=== PATIENT | male | born 1960 | race Caucasian/White ===

== ENCOUNTER 2023-02-18 06:54 | Outpatient (OUT) | payer OTHER, SELFPAY ==
[2023-02-18 07:20] LABS: Basophils Absolute Auto 0.1 10^3/uL (0.0-0.1); Basophils Percent Auto 0.8 % (0.2-2.0); Eosinophils Absolute Auto 0.5 10^3/uL (0.0-0.7); Eosinophils Percent Auto 7.2 % (0.9-7.0); Hematocrit 43.2 % (42.0-54.0); Hemoglobin 14.7 g/dL (14.0-18.0); Immature Granulocytes Abs Auto 0.04 10^3/uL (0.00-0.03); Immature Granulocytes Pct Auto 0.6 % (0.0-0.5); Lymphocytes Absolute Auto 1.6 10^3/uL (1.2-3.8); Lymphocytes Percent Auto 25.2 % (20.5-60.0); Mean Corpuscular Hemoglobin 30.9 pg (25.9-34.0); Mean Corpuscular Volume 90.9 fL (80.0-94.0); Monocytes Absolute Auto 0.5 10^3/uL (0.3-0.8); Monocytes Percent Auto 8.3 % (1.7-12.0); Neutrophils Absolute Auto 3.8 10^3/uL (1.4-6.5); Neutrophils Percent Auto 57.9 % (43.0-75.0); Platelet Count 174 10^3/uL (150-450); Red Blood Count 4.75 10^6/uL (4.70-6.10); Red Cell Distribution Width 13.2 % (11.0-15.0); White Blood Count 6.5 10^3/uL (4.0-11.0)
[2023-02-18 14:05] LABS: Alanine Aminotransferase 44 U/L (16-63); Albumin Globulin Ratio 1.3; Alkaline Phosphatase 85 U/L (46-116); Aspartate Amino Transferase 24 U/L (15-37); BUN Creatinine Ratio 15.7; Bilirubin Total 0.4 mg/dL (0.2-1.0); Calcium 9.2 mg/dL (8.5-10.1); Carbon Dioxide 25.3 mmol/L (21.0-32.0); Chloride 102 mmol/L (98-107); Chol HDL Ratio 3.3; Cholesterol 125 mg/dL (<=200); Estimated GFR (African America >60 (>=60); Estimated GFR (Non-African Ame >60 (>=60); Globulin 3.2 g/dL; Glucose 94 mg/dL (74-106); HDL Cholesterol 38 mg/dL (40-60); Potassium 4.3 mmol/L (3.5-5.1); Sodium 138 mmol/L (136-145); Total Protein 7.2 g/dL (6.4-8.2); Triglycerides 81 mg/dL (<=150); VLDL CHOLESTEROL 16.2 mg/dL
== END 2023-02-18 06:55 | disposition home or self-care (01) ==
LOC: LAB 06:54
PROVIDERS: PCP Internal Medicine; Visit Provider Internal Medicine
DX: Z00.00 Encounter for general adult medical examination without abnormal findings (principal); Z12.5 Encounter for screening for malignant neoplasm of prostate
CPT/HCPCS: 36415; 80053; 80061; 85025; G0103

== ENCOUNTER 2024-02-22 11:55 | Outpatient (OUT) | payer OTHER, SELFPAY ==
[2024-02-22 11:56] LABS: Basophils Percent Auto 0.5 % (0.2-2.0); Eosinophils Absolute Auto 0.1 10^3/uL (0.0-0.7); Eosinophils Percent Auto 2.1 % (0.9-7.0); Hematocrit 43.4 % (42.0-54.0); Hemoglobin 14.5 g/dL (14.0-18.0); Immature Granulocytes Abs Auto 0.03 10^3/uL (0.00-0.03); Immature Granulocytes Pct Auto 0.5 % (0.0-0.5); Lymphocytes Absolute Auto 1.3 10^3/uL (1.2-3.8); Lymphocytes Percent Auto 19.1 % (20.5-60.0); Mean Corpuscular HGB Conc 33.4 g/dL (29.9-35.2); Mean Corpuscular Hemoglobin 31.3 pg (25.9-34.0); Mean Corpuscular Volume 93.5 fL (80.0-94.0); Mean Platelet Volume 10.1 fL (9.5-13.5); Monocytes Absolute Auto 0.4 10^3/uL (0.3-0.8); Monocytes Percent Auto 6.5 % (1.7-12.0); Neutrophils Absolute Auto 4.8 10^3/uL (1.4-6.5); Neutrophils Percent Auto 71.3 % (43.0-75.0); Platelet Count 151 10^3/uL (150-450); Red Blood Count 4.64 10^6/uL (4.70-6.10); White Blood Count 6.7 10^3/uL (4.0-11.0)
[2024-02-22 12:17] LABS: Alanine Aminotransferase 27 U/L (16-63); Albumin Globulin Ratio 1.3; Albumin Level 4.1 g/dL (3.4-5.0); Alkaline Phosphatase 72 U/L (46-116); Anion Gap 8.4; Aspartate Amino Transferase 23 U/L (15-37); BUN Creatinine Ratio 12.5; Bilirubin Total 0.6 mg/dL (0.2-1.0); Calcium 9.4 mg/dL (8.5-10.1); Carbon Dioxide 29.3 mmol/L (21.0-32.0); Chloride 100 mmol/L (98-107); Chol HDL Ratio 2.3; Cholesterol 143 mg/dL (<=200); Estimated GFR (African America >60 (>=60); Estimated GFR (Non-African Ame >60 (>=60); Globulin 3.1 g/dL; Glucose 100 mg/dL (74-106); HDL Cholesterol 63 mg/dL (40-60); Potassium 3.7 mmol/L (3.5-5.1); Sodium 134 mmol/L (136-145); Total Protein 7.2 g/dL (6.4-8.2); Triglycerides 73 mg/dL (<=150); VLDL CHOLESTEROL 14.6 mg/dL
[2024-02-22 12:41] LABS: Prostate Specific Antigen Scrn 0.71 ng/mL (<=4.00)
== END 2024-02-22 11:56 | disposition home or self-care (01) ==
LOC: LAB 02-23 11:56
PROVIDERS: PCP Internal Medicine; Visit Provider Internal Medicine
DX: Z00.00 Encounter for general adult medical examination without abnormal findings (principal); I10 Essential (primary) hypertension; E78.00 Pure hypercholesterolemia, unspecified; Z12.5 Encounter for screening for malignant neoplasm of prostate
CPT/HCPCS: 36415; 80053; 80061; 85025; G0103

== ENCOUNTER 2025-03-09 11:37 | Outpatient (OUT) | payer MEDICARE, OTHER, SELFPAY ==
--- OUTSIDE RECORDS SUMMARY | 2025-03-09 11:41 | XMS_ITS | CCD ---
Author Organization [facility] Care Team Providers Care Adjunct Art History Instructor Name Role Phone ANGELICA, DR ADAN Consulting Unavailable ANGELICA, DR ADAN Admitting Unavailable ANGELICA, DR ADAN Attending Unavailable RUBENS, DR Nelly Magaña Attending Unavailable RUBENS, DR Nelly Magaña Consulting Unavailable RUBENS, DR Nelly Magaña Admitting Unavailable DARIEN, DR MILVIA Patel Consulting Unavailable TOSHIA, MILVIA Consulting Unavailable ANGELICA, DR ADAN Primary Care Unavailable ANGELICA, DR ADAN Admitting Unavailable ANGELICA, DR ADAN Attending Unavailable ANGELICA, DR ADAN Consulting Unavailable ANGELICA, DR ADAN Admitting Unavailable ANGELICA, DR ADAN Attending Lokesh Blackburn Unavailable Lokesh Schmitz DO Primary Care Provider Lokesh Schmitz DO Attending Provider Medications Current Medications Medication Drug Class(es) Dates Sig (Normalized) Sig (Original) aspirin 81 mg delayed release oral tablet (7 sources) Platelet Aggregation Inhibitor, Nonsteroidal Anti-inflammatory Drug Start: 08-08-2023 take 1 tablet by mouth once daily Aspirin 81 mg tablet,delayed release (DR/EC) Active 81 MG PO Daily August 08, 2023 12:00am Complies with drug therapy take 1 tablet by janet th every twenty-four hours Aspirin 81 MG 1 tablet Orally Once a day Active atorvastatin 20 mg oral tablet (12 sources) HMG-CoA Reductase Inhibitor Start: 10-08-2024 take 1 tablet by mouth once daily at bedtime Atorvastatin 20 mg tablet Active 0 .ROUTE .COMPLEX October 08, 2024 11:22am TAKE 1 TABLET BY MOUTH EVERY DAY AT BEDTIME Complies with drug therapy Start: 08-08-2023 End: 10-08-2024 take 1 tablet by mouth once daily at bedtime Atorvastatin 20 mg tablet Discontinued 20 MG PO Daily at bedtime 90 August 10, 2023 4:13pm October 08, 2024 11:22am Atorvastatin Petey cium 20 MG TAKE 1 TABLET DAILY EVERY EVENING Active lisinopril 20 mg oral tablet (18 sources) Angiotensin Converting Enzyme Inhibitor Start: 01-10-2025 take 1 tablet by mouth once daily Lisinopril 20 mg tablet Active 20 MG PO Daily January 10, 2025 12:56pm Complies with drug therapy Start: 10-08-2024 End: 01-10-2025 take 1 tablet by mouth once daily Lisinopril 40 mg tablet Discontinued 0 .ROUTE .COMPLEX October 08, 2024 11:22am January 10, 2025 12:56pm TAKE 1 TABLET BY MOUTH EVERY DAY Start: 08-09-2024 End: 10-08-2024 Lisinopril 40 mg tablet Disc ontinued 20 MG PO Daily August 09, 2024 3:51pm October 08, 2024 11:22am Start: 02-15-2024 End: 08-09-2024 take 10 mg by mouth once daily Lisinopril 40 mg tablet Discontinued 10 MG PO Daily February 15, 2024 4:45pm August 09, 2024 3:52pm Start: 02-15-2024 take 10 mg by mouth once daily Lisinopril Active 10 MG PO Daily February 15, 2024 4:45pm Start: 08-08-2023 End: 02-15-2024 take 1 tablet by mouth once daily Lisinopril 40 mg tablet Discontinued 40 MG PO Daily August 10, 2023 4:14pm February 15, 2024 4:55pm take 1 tablet by janet th once daily Lisinopril 40 MG TAKE 1 TABLET BY MOUTH EVERY DAY Active Completed/Discontinued Medications Medication Drug Class(es) Dates Sig (Normalized) Sig (Original) amLODIPine 10 mg oral tablet (11 sources) Dihydropyridine Calcium Channel Stephen Start: 08-08-2023 End: 08-09-2024 take 1 tablet by mouth once daily Amlodipine 10 mg tablet Discontinued 10 MG PO Daily August 10, 2023 4:12pm August 09, 2024 3:51pm Start: 06-05-2022 take 1 tablet by janet th once daily amLODIPine Besylate 10 MG 1 tablet Orally Once a day this replaces his 5mg May, Active Problems Problem Classification Problem Date Documented Date Episodic/Chronic Disorders of lipid metabolism (17 sources) Pure hypercholesterolemia, unspecified; Translations: [Hypercholesterolemia ] Onset: 01-23-2022 Chronic Essential hypertension (19 sources) Essential hypertension; Translations: [Essential (primary) hypertension] Chronic Joint disorders and dislocations; trauma-related (4 sources) Unspecified internal derangement of left knee; Translations: [UNS INTERNAL DERANGEMENT LEFT KNEE] Onset: 09-27-2021 Chronic Other connective tissue disease (3 sources) Synovial cyst of popliteal space; Translations: [Synovial cyst of popliteal space [Lozano], left knee] Episodic Other diseases of veins and lymphatics (8 sources) Peripheral venous insufficiency; Translations: [Venous insufficiency (chronic) (peripheral)] 08-08-2023 Episodic Other diseases of veins and lymphatics (5 sources) Venous insufficiency (chronic) (peripheral); Translations: [Venous (peripheral) insufficiency, unspecified] Episodic Other nutritional; endocrine; and metabolic disorders (6 sources) Body mass index 30+ - obesity; Translations: [Obesity, unspecified] 08-08-2023 Chronic Other nutritional; endocrine; and metabolic disorders (3 sources) Obesity, unspecified; Translations: [Obesity, unspecified] Chronic Other nutritional; endocrine; and metabolic disorders (2 sources) Severe obesity; Translations: [Morbid (severe) obesity due to excess calories] Chronic Other nutritional; endocrine; and metabolic disorders (1 source) Morbid (severe) obesity due to excess calories Chronic Other nutritional; endocrine; and metabolic disorders (1 source) Body mass index (BMI) 35.0-35.9, adult Chronic Other nutritional; endocrine; and metabolic disorders (1 source) Obesity caused by energy imbalance; Translations: [Morbid (severe) obesity due to excess calories] 08-08-2023 Chronic Other nutritional; endocrine; and metabolic disorders (2 sources) Obesity; Translations: [Obesity, unspecified] 08-10-2023 Chronic Other nutritional; endocrine; and metabolic disorders (2 sources) Overweight; Translations: [Overweight] 08-09-2024 Episodic Other screening for suspected conditions (not mental disorders or infectious disease) (8 sources) Encounter for screening for malignant neoplasm of prostate; Translations: [Patient encounter status] Onset: 09-25-2021 Episodic Residual codes; unclassified (1 source) History of colonoscopy; Translations: [Other specified postprocedural states] 02-15-2024 Episodic Residual codes; unclassified (1 source) Other specified postprocedural states; Translations: [Other postprocedural status] 02-15-2024 Episodic Results Test Name Value Interpretation Reference Range Facility DIRECT LDLon 01-23-2022 Cholesterol in LDL [Mass/Vol] 73 mg/dL Normal [facility] Comment on above: Performed By: #### D LDL, ALT #### [facility] [address] [place] [address] Dr. Steven Massey DLDL NORMAL SEE BELOW Normal [facility] Comment on above: Result Comment: <100 mg/dl OPTIMAL 100 - 129 mg/dl NEAR OR ABOVE OPTIMAL 130 - 159 mg/dl BORDERLINE HIGH 160 - 189 mg/dl HIGH >190 mg/dl VERY HIGH Performed By: #### D LDL, ALT #### [facility] [address] [place] [address] Dr. Steven Massey SGPTon 01-23-2022 ALT [Catalytic activity/Vol] 40 U/L Normal 16-63 [facility] Comment on above: Performed By: #### D LDL, ALT #### [facility] [address] [place] [address] Dr. Steven Massey Consent Formson 10-25-2021 Consent Forms [id number] [facility] Coding Summaryon 10-17-2021 [facility] EcopbqzxLQa6uBb+PGhlY WQ+OS1MOQUuD98xrTIvoT 7OG4fYBO9IHULKTOBNLY7 WHZ8puMM1BDhvS4BpniDu KxzxqOWtIP99GRq3OIB7g ZzmQYgroB2klQEwP8t3Vp AvKM27nU29MDyvDWIqJnP 3LjZpbjsgbWFy H2igFbAibQAoYfl+PHRhY mxlIHdpZHRoPScxMDAlJy JfvWilRI3fOy5jQFEyXMB vbGxhcHNlOiBj c2vtRBLmSCuvGA3qmPseD 1FvoDX4QODqt6t6Jv00yU I+RUVeCGD0wSumEZsez91 5ImRwr2meQYV5 iQNjOFveFSG4J07ms8I7R RBhNTFbBST1rTZ1hA4bcS xwbafgZ0NaeWYvBwW5UFM 0jWIhlU8poJiz iovwnV3gJjz+G84WBA4KE UWDEK8PBpq9I6RfYbrwgO I+NP69GSVsVD32yFWblTS wc5sprLg6MvWc EIJkLJU6mJmoORkxk0CrD ISkT11uuAGil3H7LNBxdO gieZJhZfWysMT6zT3yPHk wljzqv3xrctws Gyvkz8enaq45qY80D51vX AntPCNqGJU4HXQaTAIeiC duje6reG2tFd2+KKwac5n dv9jduXi3TzZj BOHrkkVnxVnkGHX2t7XtR s71G9XdxXojo8ZbZfk7pe 66vMGaa0F3nFB7JUkeSAX yrD0ySSkjLgN1 JQFaOzByaO65dXTnCKvrR a3klUjtbEvgKL3hLSYbsr ywRWNxaN6lUNRkgSUtkSx pKZ0sJAWakbnn m995CkZwWOW6EQEbhLRkL 9YbpM4nXnYqABYcISFiO6 HjjEJhWFbgX372FWlhVlJ 2KGYpaeHvD1Ta UWGjwGabNfF8g9K0Bs7Vq 2BhvfwxPHK0XEkaOHU8Tf F8VtLvQiE3Q4AsOhu4JFA oiPmtLR5jV3Vp NQGajldfnxvzmVZ8PUSaG YSamA34vOAdCPzmJr1ax9 Q1l893XGIaXJIqkC95Mt3 udDogMTBwdCBU mU3tukmoi3rgoqufKyZxL ZMjORj0AHc1WUGqeSbsNl PgWBF1RjS2ZQK4yLKcvP5 upBtbwdkexV6c Oyc+F65yeD0eLXO1YVO7s rhjFAGeszDsSH15OL79M9 RyPjwvdGFibGU+PGRpdiB cxDkqJX5sMbFp m6det5XoRDqdI1IkORHkH SfqMut1GUToVOJ8vCZ5kY 4xMEDhRWbyy2R1pRS0O7S riwOijo5cy0cr OTNkZLarG84biUSmd8N5I JZawUY1VDXhbNirGpGxdI 93Oyc+AHUkqVxjk9VfBxl cf9ggo8dbhYk2 XwPhZFKsrxOvkIhfMVZ3c 3HlYa57E15tNHotWTMjBG NhSFZtKECslMjljz5nuD8 wIi8+PGNvbCB3 qMA4qO0fJYBeQzK5RJigI 724QeRmxOIkUpere4wxg6 wabSl4KcYjOBYnloEqpNk vLTE4r2SsFe69 F99mFWliETKgFIPlPGPiZ KTgjEagwo5vcU1hVr2+PC 9rs3jmgt50yH75tRL+PHR bVNI2vRugYQpw REVnkM5cLHnsBcE2QIDiW iFwvY43sWTwALqnPa0ubG hyjExuBZ4cXODbudndd54 0UhFvz6oiXOTs wNSrLDloEUR9L26qn9Q7S PXrUPCvFBZ2tNW1tB3evS lnbjogbGVmdDsgdmVydGl zXOdeDYetS922 IHRvcDsnPlBhdGllbnQgT pAfOOj2C4HxUhx9BEEzbM saQY5adINkLBajGt2myFu qhByfJY9rGSCz qzvil628ZpWuc9pwVMFoc HCoURekVNH8T33vg5L0WR IyVNEcZAS5fKV7yN9rnQx nbjogbGVmdDsg zmBzrZkbNJbyQKpbM505V HRvcDsnPkJpcnRoIERhdG U4PY94YR66qZEtp1A9jIP 7C5QyHFUokvsm zcuxuVY9YIMiBHSqiV72Y g1hdMijDu5hVDLpVOE7WA RdbUEkW1EpbZ5cGmBaKCR uVWCwG9SpbLMl KBlrM769UKusSxU7AMRhk wCiD6SeOWPdcEgtBkN0m4 I7Cd2SK3S2ZW37SC23oBM li2M2dXN2I6Ep KVDyecyhyedfwJR1FVCgQ AZabN62Fd6wrRulOg2aAU GxKEF9IRYkkRBeD5IpoL9 yOiAjMDAwMDAw J6WaaHClNHsgG742EPukT cO0AIEkkcFxZ9KyXIIpbJ txJfG0r6C8Dl6HWHh9YM2 4ZO95fKYut0G5 uCW1J2GeWISrtqrsnwimj UY3CTIcFIAfpW25Pe4vlW rnGz8cOLSfUJW4ENBjzSP aJ0WllM6nKySa UIPkAQQkP3DoeSAnQNxzO 418SVmpSkA0MNYuxkRyP0 VeRXKivKxxFaW5s4X9Om6 DEQYsVE82WCE4 bHC9KI15XB82H2WwLigvr GFibGU+PHRhYmxlIHdpZH RoPScxMDAlJyBzdHlsZT0 uVd6iGATvFYXc zDdjcUVcZtBvl7xhVVHjF IerNJ4woCisN7SasAP6AT Rab4f7Ux82R88gK1IruQX +NIJikAB1kXX8 uQ6nZxZlYyJ7EBfzL745G oQyoDWqXjkxq6hgx4ubjJ a2GfD0MXFlvzEviLdjWGZ 5y7SiZu91V10p IHdpZHRoPSIxNSUiIHZhb Uvtbk2jnB6oNo5+PGNvbC Q6qHI2fI5bGeDlNnD0XEc vB258CyRsgYGc Zedch3sqx5akmEr6WiTvU XWsduVayYwuBSJ6u0ZdXx 78D2AumNncx8IsTrd3ov8 4gVSmq5W1lGQ6 U5RmDJWpludsjMOdcCygY G4jSJVzafwdPQFwtB0kLI DlR8c5BoDoXvN7JDhmP9V spxD5RABlrMXe HVrrIRT8P10bq4X1UQCqM CZbVII4bOT3kC8wqYmwha ogbGVmdDsgdmVydGljYWw mEYfgY628TZPa qIqzLUBstV3lKLUskBZgm XhxDK6wFDDmhtocKmkZC8 BVP8FqFGQJGjjvUqqarFJ +SYXnAFR3iQco DShoQZTekR4hPDWpS3d4T lMeDbZ2IYauX3NyWDAnmv fwMw15pM3dUmFiHkV1XHc jD2FpnsI7QAVb nISqXQttTAO5H22ub5W3C UDlWUVaFIL5fGY6wZ6zeI lnbjogbGVmdDsgdmVydGl wNHckZOpxO431 DZOpsXokBqN5ThP2CuY2J Gu9O3YxXoy9FUWlhRzoVQ 1tpHVqKInaBa0tcOuvjYa sUT4uMNAmudfj PYOqcT6rYNBjzAVduVceU R3cZEGfoxwwb319QySfYT W6OCPogYFgJ2VxcV4gQmU vRLQrTNMnE2Qz iPCwQLwpM270KTnqAjM3G IEfdaCnN2KiIOAhdWknEw I9a0S6Pp05VoLPBFMnyec vdGQ+PHRkIHN0 gMiwEMjoTGTdcD1yVEXaC 6r0LyJoLxX5NQjlR4KcBC BfvwhyQk03xX5yXkCpKhE 0ZUtcO7CvfrD2 JZJoeBFjPBnaEKR3Y07dd 9F9UWOyDESoQPJ7xVZ9cB 1hbGlnbjogbGVmdDsgdmV ydGljYWwtYWxp D005TSWyfPclTi9XAJD4Q 6EoOob0EVOdvYzoOB9meA YcKQjiDw9bqEdgsSfeLK8 wNTBpbjtwYWRk zO3aURPwrEDfeXjjRT3tX HDqnnxfj835LjYdWGB5SE ZsfVUaN2MquE8nBiLlMEG yRTOrU9MxiPBr PItwG516PLflRtB3YVJpu wLwY4TqDDVnpPlfIsE9b9 E9Sg6NTTetK9OpD5GqzOf vdGQ+JX70of23 Z8DhVzgeIkx2CFNdBCG9o QN9kK7vEUGaQGupa7T5qS H9V4LxpbJumw5ql6alRUD rADqqX59jnZOv x9T8BDZpoGD2SCEqpOcvH kPmnS82Pck+PGNvbGdyb3 TzZzhne3xdn1tsiBs9CkT wJSIgdmFsaWdu WSR4x2TbKf82G75qIUfaK HRoPSIzMCUiIHZhbGlnbj 7bsS7rEd9+QTMznXG4mEC 3bM1jRrCaGoX1 EHmmY465NlErhNLqEbszk 6mpz3ketAa3HmXiHMAtqr ClqGcoXLX5d3RwZo32T8Y caZfqv9NfNah8 jc99kXRra1P8qGW1C9IqI AYhjfjbyMWjhLikIA5jDL OkqhbkWQKhuU5wHKPmJ2g 5JdDdQkV0HDap A5ZawrZ9AZPwmNAbIWSix OKIeR6gqotex8cpexagBe NdFGSzTDo4KAf7FCCzuGu gThSnWHY2PnA4 AGX6kZPjjO1epIstddrao G9wOyc+RLw5m7iahGIaOG 4kcWT5JL19CL99nGTtd6T 3xVC7Z0XsICLz ptaosozmlBV1AJQmRNHdo E45Pk2pqZkuMt3eRJMkQN N2THUnjXUbM8DkfG9mYvK uCIDwQTDhP3Zk aBFrNKnpT757UUvtYxQ6V GWgwbZnH9QhXUVnoBviIu U6g5A8Us8XPA57DX94HP9 0qUXvu5F9lYG1 W3YsLBCpqyqzkqwioXA9V HMxUDVlbQ39Lm7aaCbyKp 0cBZYeIRD5JTEczUVmD3X mgC5kQqVjVJFg UJYtV5UbvUXlCJxcV154A OvwShB8BYPncdHmA5NnLG KzwKbgNsJ4k6N5Pk8WPr8 1AE84JW99oWUw b2B5yPL3I0DdBZZcsrnee jfgnAI1OBTiOFZvyB37Zi 7mfQtxJf2fLDDfBWY7JDG tgJPfU3NwjJ0p CxBoYEGpQTFrA8QrhAJpF VveM359FZlcOrY1HWHtyv WhI0QtSJGogDjpErM6s7I 6Dr3VDMlihfv7 R5ZqFwsdsML+KK25KZAiU T36bOTajVByq6olwCh5Ex JtXDSeIUW6bZldQNhca2H oSZEeK30ujQEz c2U (more content not included)... Normal [facility] [place] [facility] Intra-Op Record Summary Primary Physician: Laith Art DO Finalized Date/Time: 10/16/21 13:46:33 Pt. Name: GAVIN ZELAYA D.O.B./Sex: 1960 MALE Med Rec #: [id number] Physician: Laith Art DO Financial #: [id number] Pt. Type: D Room/Bed: / Admit/Disch: 10/14/21 11:05:00 - 10/14/21 16:45:00 Institution: Case Times MAGR Entry 1 Patient In Room Time 10/14/21 14:32:00 Out Room Time 10/14/21 15:14:00 Anesthesia Start Time 10/14/21 14:31:00 Stop Time 10/14/21 15:16:00 Surgery Start Time 10/14/21 14:52:00 Stop Time 10/14/21 15:10:00 Last Modified By: Viri Burgess RN 10/16/21 13:41:02 Case Attendance MAGR Entry 1 Entry 2 Entry 3 Case Attendee Laith Art Satya S MD Mitchel, Bradley MD Andrew DO Role Performed Surgeon - Primary Anesthesiologist of Anesthesiologist of Record Record Time In 10/14/21 14:32:00 10/14/21 14:31:00 10/14/21 14:55:00 Time Out 10/14/21 15:14:00 10/14/21 15:14:00 10/14/21 15:00:00 Procedure Arthroscopy Knee(Left) Arthroscopy Knee(Left) Arthroscopy Knee(Left) Last Modified By: Viri Burgess RN, Jacquelyn RN Burns, Jacquelyn RN 10/16/21 13:41:04 10/16/21 13:41:04 10/16/21 13:41:04 Entry 4 Entry 5 Entry 6 Case Attendee Elvira Aquino Brittany E CSFA Burns, Jacquelyn RN COMMERCIAL APPRAISER COMMERCIAL APPRAISER Role Performed Guest Relations Executive [employer] Time In 10/14/21 14:32:00 10/14/21 14:32:00 10/14/21 14:32:00 Time Out 10/14/21 15:14:00 10/14/21 15:14:00 10/14/21 15:14:00 Procedure Arthroscopy Knee(Left) Arthroscopy Knee(Left) Arthroscopy Knee(Left) Last Modified By: Viri Burgess RN, Jacquelyn RN Burns, Jacquelyn RN 10/16/21 13:41:04 10/16/21 13:41:04 10/16/21 13:41:04 General Comments: STOUT AND NEPHEW REP: CARO Surgical Procedures MAGR Pre-Care Text: A.20 Verifies operative procedure, surgical site, and laterality Im.150 Develops individualized plan of care Entry 1 Procedure Arthroscopy Knee Primary Procedure Yes Primary Surgeon Laith Art DO Surgeon Comment LEFT KNEE SCOPE Start 10/14/21 14:52:00 Stop 10/14/21 15:10:00 Anesthesia Type General Surgical Service Orthopedics Wound Class Clean Technique Details Closure Technique Primary Entire procedure Yes was performed via laparoscope or robotic assistance Last Modified By: Viri Burgess RN 10/16/21 13:41:05 Post-Care Text: O.730 The patient's care is consistent with the individualized perioperative plan of care General Case Data MAGR Pre-Care Text: A.350.1 Classifies surgical wound Entry 1 Case Information OR MAGR OR 01 Case Level Level 4 Wound Class Clean Specialty Orthopedics ASA Class 2 Diagnosis Preop Diagnosis INTERNAL DERANGEMENT Postop Same As Preop Yes LEFT KNEE Postop Diagnosis INTERNAL DERANGEMENT LEFT KNEE Blunt or No Is the procedure No penetrating injury considered occured prior to Emergent/Urgent? the start of the procedure: Last Modified By: Viri Burgess RN 10/16/21 13:39:31 Post-Care Text: O.760 Patient receives consistent and comparable care regardless of the setting Time Out MAGR Entry 1 Time out date/time 10/14/21 14:50:00 All team members Yes have introduced themselves by name and role Surgeon, Yes Surgeon reviews Yes anesthesia, nurse critical or confirm patient, unexpected steps, site, procedure operative duration, anticipated blood loss Anesthesia team Yes Nursing team Yes reviews any reviews sterility patient-specific (including concerns indicator results) and equipment issues/concerns Antibiotic Antibiotic Yes prophylaxis given within the last 60 minutes Last Modified By: Viri Burgess RN 10/14/21 14:55:14 Patient Positioning MAGR Pre-Care Text: A.280 Identifies baseline musculoskeletal status Im.40 Positions the patient Im.80 Applies safety devices Entry 1 Procedure Arthroscopy Knee(Left) Body Position Supine Left Arm Position Extended on padded arm Right Arm Position Extended on padded arm board board Left Leg Position Other/see comments Right Leg Position Other/see comments Feet Uncrossed? Yes Press Points Checked Yes Additional Operative leg in Positioning Device Safety Strap, Arm Information arthroscopic knee Boards, Leg Miranda miranda with padded insert, non operative leg supported with a thick pad dangling at the end of the bed. Outcome Met (O.80) Yes Last Modified By: Viri Burgess RN 10/14/21 14:56:42 Post-Care Text: E.290 Evaluates musculoskeletal status O.80 Patient is free from signs and symptoms of injury related to positioning Skin Prep MAGR Pre-Care Text: A.30 Verifies allergies Im.270 Performs skin preparation Im.270.1 Implements protective measures to prevent skin and tissue injury due to chemical sources Entry 1 Skin Prep Syntegrity Prep Agents (Im.270) Chlorhexidine Gluconate Prep By Jenifer (more content not included)... [facility] MAGR PACU Recordon MAGR PACU Record MAGR PACU Record Summary Primary Physician: Laith Art DO Finalized Date/Time: 10/16/21 14:35:29 Pt. Name: GAVIN ZELAYA Jorge Luis Nesbitt/Sex: 1960 MALE Med Rec #: [id number] Physician: Laith Art DO Financial #: [id number] Pt. Type: D Room/Bed: / Admit/Disch: 10/14/21 11:05:00 - 10/14/21 16:45:00 Institution: PACU Case Times MAGR Entry 1 In PACU I 10/14/21 15:18:00 Discharge from PACU 10/14/21 15:40:00 I Last Modified By: Christine Nogueira RN 10/14/21 16:29:20 Finalized By: Jacqui Bello RN Document Signatures Signed By: Jacqui Bello RN 10/16/21 14:35 [facility] Coding Summaryon 10-15-2021 Coding Summary [employer] 64 RqqivuyvXHa6yXv+PGhlY WQ+HB9ZNAFkA51qvBQitE 9TU3iAOC0LKVVXTXMTOR6 ZUG8zsMJ8ZGfdJ7ZycfAd HpercFToRB27XNy4HRK9r BgoNRxbuR9pvHLxO0o9Ed FbKE94oR22FFacOQSbObY 3LjZpbjsgbWFy P2mkBeQhpLUtNxj+PHRhY mxlIHdpZHRoPScxMDAlJy FpyPqaIG4vAl2fWKCgKJN vbGxhcHNlOiBj h4giVXNkVNgmAR4qjQpiN 3FwsWE4MRCrr8j3Gx71eL I+KIPaOSC4aFclMWxla57 4XgIhu5ouTQQ5 uSPtOEweLXU9K67dd1D7U EYnCZHxABW0yHW5wX1hmT miscgiI7SkkNJvHsK3XCE 9kQAmxF0nuAtn lyexoZ9gTha+W76SLI6YS OFGRT3PEcj1R6EyNgzcrI I+XM98AHVmFE02uRCsqUL fg3ftmKl5XzUa XGJuZMP6eTwrHMfep8TfI SVxO33yuIIzk4I4WXBvqQ abkTOkMzTjbFI7vO8gFPu iblzus2xceici Cbksj9pook04iY12P04tG GvhTMZoKKB1QANzIVYbyZ pqql5dhT4gRs4+VMucy0x ac7oteYi4FiCs RIPajvWlqGguNBR0g7RwR a04O9ScjKynj7RmCzu7ry 21bWAzu2W1lGG6SNbeIMA cdN5zCFxoTpA2 ZERrCqHavH15qHOlPXvjC a4lkFtwhJweNA1oLGAzmn tpYEBfdV6cHHJpsXVmnHc sRI3iXTVwzpdb y650HzYlZCR3CVUsvGRkX 2QezX3eTvEkCSBcYGZxM7 NrgOPtMSnpK826UXyqZxJ 5MTWlpwYnX5Cq HRJytUglBiU5n1A7Go2Uv 3RoscejYVA6RQieWHR9Tt L0HwPvScI9O0ZvFzz3TCQ qgUvkWW7jI2Lb KQXronpnmjysnEQ1CSFpT OUlkE56gNLaJHpmZc0sf5 Q5g457MKGdCVMnjI35Yt3 udDogMTBwdCBU bY6hvvwiq4lfdwrgYvXeA WLzEWa8SFf9XPRcxIxoRa AkFVA2NkD6UVY6gEJygU3 cxLsaikdxtK1t Oyc+D06zcE8wWPA9XMM5y pndYDTttiUwNU89PQ12E1 RyPjwvdGFibGU+PGRpdiB cdRdzFQ8aKaVw l5wrc9TuHUpxM2XzPTVhQ PapJbr6MGRtEUB7lVW1qS 3qUGPeRFffp7N5bLV1P1R kctOgee1ch5ph ZQPxFJbmI32paVQln9N1I THlbIO1OICvqQklPkUsuR 93Oyc+MGDaeAowx6RbSma re3uww9ubyWh0 ZeBxQTTluxEdiDpyESI7o 3VsVy70V32jUMsuPNFbRG WsFZOvWHAreOeecf0wbI6 wIi8+PGNvbCB3 aSW2tJ1mPBXlOdV0MNmdL 338HpOiqBObEyklx8tmv5 eihMc9CgOcWMKqtpKnaLc ySUG6t8EfPu34 I32mFUbwTNSuGPOhNXIeZ CNbxCewbx3teB4hMt0+PC 0ia2glhp37jI37qIV+PHR oNMG6fCytCPib WTHpsJ4hUXekTgQ2UKJuE wCivR77fLHdALbdOv5cyD qfuMtwGQ7gOQKculxcm97 8SaQdw1ysBTVq yJNdTBzoYDJ5S34uq2L0I XYwAULaQNG0bSG6iR4krY lnbjogbGVmdDsgdmVydGl dTKmhEHwsD921 IHRvcDsnPlBhdGllbnQgT dNgEXc3S3NoDnk2CUYftP kbGD1slIFqEDbwNh2pbFo sxZjoAN6pICIb mbqvk585TxEhp5vrREQww TYyDIqzMOR8Q74ea5Z9PI GaQVWmVQB9vWP8qS3xmVe nbjogbGVmdDsg tkIbrYatIUhyTGwtV676H HRvcDsnPkJpcnRoIERhdG Q0QJ66EA13cTAhk7T5mIR 4G6DmSLZxssip tduvvMB5MRKbQRNooF47N a3qmFmhQk4wRFJwTWT0RN FtmJBhD8PygM1oQbViIBM hAGBhP1QodNYn JXwkJ762GTbqGtG3ZMThr jMkP4VfZRQjdBesKoG5l1 R3St7PO9E4ZL94XN29uQC nk1S3mFE5Q6Wd BGJwquzbhxjupHE1HMWtS HUyrE56Ym6xxMhxPz4xOJ CqGVC2TFTosUJxI8OogI6 yOiAjMDAwMDAw J9WdaVEvNQedC620BTrnC yG9XQKombFgV9FsIAQalF irRrP8u4W1Jx2BNBl4AY5 0NH82lAExm0C2 mJH6V8SxVAXtzabswwbyn RN7LQRrSMZdxP18Tz5ozY jsYc6aJGAfECA2IGNudKP fI1SvlS8qEeKn EJEjMHGoD4CgwJEwDFanU 271HNspOiI1VJQmsbLqU6 EbYDOanVnmAkT7w1K8Yw6 VAKKsEF77ZGX8 oWM5XM26RQ53V5GcYdowx GFibGU+PHRhYmxlIHdpZH RoPScxMDAlJyBzdHlsZT0 bHl2pHHCsRLZk dNnpfAAfUqQnb9hpFZHxK LcfMP9tnGslI8QukRW5IF Loe3k8Qj35W42hW2LndYW +BWNjeBN5cMY2 iK7rNqPuMhJ2HHasQ949U nRabCPtLjcjb7bxr4hdbP b8YwX3MOPwpsLnzFzsOHU 7e3HiDr43L84q IHdpZHRoPSIxNSUiIHZhb Ylyyh4ypF5sEs2+PGNvbC S1sIT7dP8eWrTdWzD7WNr jV683IrGagVAd Jzcoi7dlo9gznJf6GtWdX VXbogBjjFhpRNY9t2ZrTv 74U1UssEtdu8HcQmv9hc6 6zWWzg1K6wOQ6 D4QcTTHlbtzdlPYltXliA A2qVFDpakinYXDarW3wCE DcG8p1HlNzTgN6QRpzE9W towM4QFOwpXTb OIcuYCU9M46gu2C5PZSnP YAtTAV1sGB5cW1npJviij ogbGVmdDsgdmVydGljYWw lSOteB378NUKa dAnlQDBweZ9uDXVocMJzy IxjBI8aNXOpzzwfRgxJD0 AZI0TpAXEKEtwgXihclLL +RHFlNGH3wZah FEmyGPGhvL9lBRGhZ0c0V gBjTvC1ZMqwD1CuYRVcys bqGi44eK3qKrBoPxQ3ZBa mC3NpnaT0MAWo gZEpFCuwBIX3N39dk9P1Y ATaMJYjYSX2bIG4vB1biM lnbjogbGVmdDsgdmVydGl aXNvnILklJ339 JPKzbZfyZfB7ZcF9KaI0H Bx8L5BtYvj8WKQboGsjMJ 3ffFDuHCooBd4izHfizNj yHJ3aRVPqdczu CMHgoI5uDJOyjOAykIffT N6iNDLfrvgym787WaGoXP T1XPAivSPvR5XrmW8nKkK vFVBzPWVyC8Og mONsAAeiE574YEccLrL6G HRtojGgU9AvTIVdgZamTy U2s3J0Rn66IkELXWEyhix vdGQ+PHRkIHN0 aZrhDStuEGMnbZ3jEIErX 8p6WtOlSbA3ESzsK5RnBL PjplmrWa35jG4xXxVqQkC 5MUngT9OwpvF2 CFBmuGRtVTxoFKR8Y28hi 8K9OQHuEESzGWE5oZX3gQ 1hbGlnbjogbGVmdDsgdmV ydGljYWwtYWxp B878UXWgdZmrUk8PJXS4D 1LgWrd5MNRlfKrqFX3rpS MbCQakZy2byLrfuYtkQH4 wNTBpbjtwYWRk bK2tSLFayYGobIgdBT6aY ERyjdjce685KrUqYJN4RO NlvAWrC1EgvS9aEqIkAMO oOPIeG5EyfNMy LVhlF347EXbjSjE3TUFew tCyI9WmMMWdjVdzCqZ6n7 Q5Dp1IHFzuyDT+NV96dc3 5J1OrEqjmZsa2 WTNqLUA8oIV5uO1cBCZoY Rfnb1Q7hVK8M0PqhsMnrm 5tq2ioBLRaEFceM61ocYQ hf0W9KAPbxUH7 CRZayTfqBnEcxG90Pbr+P WZkjOvhs5FfDbvsl3dpm5 jtwGx5GmYgUVQpglAmoAg lSDS3b5XnAx56 O20eRPrbKZGjBOMwJNStK BVulQqvdx1yaX8rUh4+PG ZlpVE5hWP8qL2wKcWeSaD 1ZXnaZ948QuZt uLKeHwxgc7yzp2fijCd0C rFrVADzmzZttTnpDBE6g7 FvLb33K3AntWfiw7LvWcr 5qg62xNZcp9W6 bBD5B5CcMNKcwgklwWWho RsoIB3aXRPymtugQDXpjI 8rXIUpJ7o8SoVsQkD3MHz qH4LobyZ3QAGu dHVvAXLolAHNzB5wponen 4mqzojsVjBoPDNtKNt8UL i8DEXyzVqiJwEzWEO5LdP 1SKY7dKZmsP0x lCxfosorjX8wAuu+UGh5c 5adlEJdHA8whLV6MT03JX 87dOQlf6N8aAE6X8KpABA pbmctcmlnaHQ6 QTKqJNTkeD61Hf4mwBhoL t2cLLCcIEG6QRFrlBDmP8 ZozZ6zXeFsGJGhQIIxX0U saOEiGKrtT667 IRbvCyR5EAAxbyKsJ2DjS WHxjZckAqF6g8G8Rt3YJG 86RW79MM87xFSqw3M8rUA 7I6EfARGwgyyh kqyyzMK5MCKbXQIoeA87Q h3gbZcySz8qBRQlKRK4II BsvKNiO9PxkX2aMzWuPAO gRDYcF1LzeGIv PXorK243YMusWvX0AGCme fAbF2ZbFOPghSiiDcB6h6 W8Eo5SQr00FQ05TV65fLA yu0D6fLI4H2Oz DFHakxhtbkpqoWB3OOHvG UPlnJ37Ye4gzArqGp0gMI MfSNI2GMGwqZEjE0PlpN3 yOiAjMDAwMDAw G1MuoRRzIDacP242ZIotE oY3PYPogzGvZ6IeNIDvqI tlCkN7t2M2Il7NOQgrbiy 5K1HkLbuibSD+ PJ94VSQzIU44cBWluYWsq 7crsHm3OzGeZKIlBDE5lN kiQPdud7NqTSOiG17ybNL [id number] [facility] (more content not included)... [facility] Consent Formson 10-15-2021 Consent Forms [id number]#1 .00OTGTIFF [facility] Discharge Instructionson Discharge Instructions [id number]#1 .00OTGTIFF [facility] Telemetry Stripson Telemetry Strips [id number]#1 .00OTGTIFF [facility] Anesthesia Noteon 10-14-2021 Anesthesia Note Patient: GAVIN ZELAYA Age: 61 years Sex: MALE : 1960 Associated Diagnoses: None Author: Rohan Mares MD Postoperative Information Post Operative Note: Post Anesthesia Care Unit. Health Status Allergies: Allergic Reactions (All) No known allergies Physical Examination VS/Measurements Vital Signs 10/14/2021 15:18 EDT Temperature Temporal Artery 36.1 DegC LOW Peripheral Pulse Rate 87 bpm Heart Rate Monitored 84 bpm Respiratory Rate 11 br/min LOW Systolic Blood Pressure 137 mmHg Diastolic Blood Pressure 90 mmHg SpO2 100 % Oxygen Flow Rate 8 L/min Oxygen Therapy Simple mask General: No acute distress. Respiratory: Respirations are non-labored. Review / Management Condition: Stable. Assessment Anesthetic outcome No anesthetic complications noted. Adequate pain relief. No Complaint of nausea and vomiting. Plan Transfer/ Discharge: Patient can be discharged from PACU when criteria met. Condition stable. [Electronically Signed on: 10/14/2021 15:27 EDT] Rohan Mares MD [Verified on: 10/14/2021 15:27 EDT] Rohan Mares MD Normal [facility] Anesthesia Note Patient: GAVIN ZELAYA Age: 61 years Sex: MALE : 1960 Associated Diagnoses: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 Normal 6.3-10.2 [facility] Comment on above: Performed By: #### 7 [id number], [id number], [id number] ####[facility] (DEFAULT)[address] [place] [address] 00936 RBC 5.07 x10 Normal 3.70-5.30 [facility] Comment on above: Performed By: #### 7 [id number], [id number], [id number] ####[facility] (DEFAULT)[address] [place] [address] WBC 7.2 x10 Normal 3.5-10.5 [facility] Comment on above: Performed By: #### 7 [id number], [id number], [id number] ####[facility] (DEFAULT)[address] [place] [address] COVID/Flu/RSV (GeneXpert)on 10-11-2021 Employed in healthcare? No Invalid Interpretation Code [facility] Comment on above: Performed By: #### 7 [id number], [id number] ####[facility] (DEFAULT)[address] [place] [address]8621 Flu A (GXpert COVFLURSV) Negative Normal Negative [facility] Comment on above: Performed By: #### 7 [id number], [id number] ####[facility] (DEFAULT)[address] [place] [address] Flu B (GXpert COVFLURSV) Negative Normal Negative [facility] Comment on above: Performed By: #### 7 [id number], [id number] ####[facility] (DEFAULT)[address] [place] [address] Group care resident? No Invalid Interpretation Code [facility] Comment on above: Performed By: #### 7 [id number], [id number] ####[facility] (DEFAULT)[address] [place] [address] In ICU? No Invalid Interpretation Code [facility] Comment on above: Performed By: #### 7 [id number], [id number] ####[facility] (DEFAULT)[address] [place] [address] status? Not Invalid Interpretation Code [facility] Comment on above: Performed By: #### 7 [id number], [id number] ####[facility] (DEFAULT)[address] [place] [address] RSV (GXpert COVFLURSV) Negative Normal Negative [facility] Comment on above: Performed By: #### 7 [id number], [id number] ####[facility] (DEFAULT)[address] [place] [address] SARS-CoV-2 (COVID-19) RNA JOCE+probe Ql (Unsp spec) Negative Normal Negative [facility] Comment on above: Result Comment: Perf ormed by PCR methodology. Performed By: #### 7 [id number], [id number] ####[facility] (DEFAULT)[address] [place] [address] SARS-CoV-2 (COVID-19) RNA JOCE+probe Ql (Unsp spec) No Invalid Interpretation Code [facility] Comment on above: Performed By: #### 7 [id number], [id number] ####[facility] (DEFAULT)[address] [place] [address] Symptomatic as defined by CDC? No Invalid Interpretation Code [facility] Comment on above: Performed By: #### 7 [id number], [id number] ####[facility] (DEFAULT)[address] [place] [address] Progress Note - Nurseon 09-23 Progress Note - Nurse PAT chart reviewed for 10-14-2021 surgery per anesthesiologist, Dr. Mares on 10-11-2021- no additional orders received. [Electronically Signed on: 10/11/2021 11:42 EDT] Madison Curtis RN [Verified on: 10/11/2021 11:42 EDT] Madison Curtis RN Normal [facility] MRI KNEE LT WO CONon 022 MRI KNEE LT WO CON EXAM: MRI KNEE LT WO CON HISTORY: Left knee pain COMPARISON: None. TECHNIQUE: Multiplanar, multi sequential MRI sequences were performed FINDINGS: Large leaking popliteal cyst and large knee effusion. No fracture, dislocation or subluxation. The superficial subcutaneous soft tissues are free of discrete edema, hematoma, mass or cyst. No muscle edema, hematoma, atrophy or fatty infiltration. Degenerative undersurface tearing of the medial meniscus body that extends into the posterior horn (coronal 21-23 and sagittal 21-22). Fraying of the medial meniscus posterior horn ( coronal 21). The lateral meniscus body is mildly extruded into the lateral gutter. Mild fraying of the medial aspect of the lateral meniscus posterior horn (sagittal 9 and coronal 20). The root ligaments of both menisci are unremarkable. The anterior cruciate, posterior cruciate, medial collateral and lateral complex ligaments exhibit no thickening, tear or edema. Approximately 6 mm of lateral patella subluxation. Edema of Hoffa's fat. The patella tendon and visualized extensor mechanism are unremarkable. Partial thickness surface irregularities of the meniscal weightbearing cartilage of the medial femoral condyle (coronal 20 and sagittal 20). No gross irregularity of the adjacent tibial plateau. Interstitial degeneration of lateral tibial plateau cartilage. Partial thickness surface irregularity of the adjacent lateral tibial plateau. Partial thickness surface irregularities of the central cartilage of the patellar apex and lateral patella facet C axial 8 and sagittal 9). No gross irregularity of the adjacent trochlear cartilage. IMPRESSION: 1. Partial thickness tricompartmental chondral irregularities. 2. Tearing of the medial and lateral menisci. 3. Large leaking popliteal cyst. 4. Large knee effusion. Electronically authenticated by: MILVIA POPE Date: 2021-09-27 15:19 Normal [facility] XR FOREIGN BODY EYEon 2021 XR FOREIGN BODY EYE EXAMINATION: XR FOREIGN BODY EYE HISTORY: Foreign body in eye COMPARISON: No relevant comparison available. FINDINGS: ORBITS: Negative for a metallic foreign body. OTHER: Negative. IMPRESSION: No metallic foreign bodies in the orbits Electronically authenticated by: MILVIA LEDEZMA Date: 2021-09-27 08:58 Normal [facility] CBC AUTO DIFFon 09-23-2021 BASO # 0.0 103/ul Normal 0.0-0.1 [facility] Comment on above: Performed By: #### C BC #### [facility] [address] [place] [address] Dr. Steven Massey Basophils/100 WBC (Bld) 0.6 % Normal 0.2-2.0 [facility] Comment on above: Performed By: #### C BC #### [facility] [address] [place] [address] Dr. Steven Massey EO # 0.3 103/ul Normal 0.0-0.7 [facility] Comment on above: Performed By: #### C BC #### [facility] [address] [place] [address] Dr. Steven Massey Eosinophils/100 WBC (Bld) 4.5 % Normal 0.9-7.0 [facility] Comment on above: Performed By: #### C BC #### [facility] [address] [place] [address] Dr. Steven Massey Erythrocyte distribution width (RBC) [Ratio] 13.4 % Normal 11.0-15.0 [facility] Comment on above: Performed By: #### C BC #### [facility] [address] [address] [address] Steven Massey Hematocrit (Bld) [Volume fraction] 45.8 % Normal 42.0-54.0 [facility] Comment on above: Performed By: #### C BC #### [facility] [address] [place] [address] Dr. Steven Massey Hemoglobin (Bld) [Mass/Vol] 15.1 g/dL Normal 14.0-18.0 [facility] Comment on above: Performed By: #### C BC #### [facility] [address] [place] [address] Dr. Steven Massey IG # 0.04 10e3/ul Critically high 0.00-0.03 [facility] Comment on above: Performed By: #### C BC #### [facility] [address] [place] [address] Dr. Steven Massey IG % 0.6 % Critically high 0.0-0.5 [facility] Comment on above: Performed By: #### C BC #### [facility] [address] [place] [address] Dr. Steven Massey LYMPH # 2.0 103/ul Normal 1.2-3.8 [facility] Comment on above: Performed By: #### C BC #### [facility] [address] [place] [address] Dr. Steven Massey Lymphocytes/100 WBC (Bld) 31.1 % Normal 20.5-60.0 [facility] Comment on above: Performed By: #### C BC #### [facility] [address] [place] [address] Dr. Steven Massey MANUAL DIFF REQ NO Normal [facility] Comment on above: Performed By: #### C BC #### [facility] [address] [place] [address] Dr. Steven Massey MCH (RBC) [Entitic mass] 30.2 pg Normal 25.9-34.0 [facility] Comment on above: Performed By: #### C BC #### [facility] [address] [address] [address] Steven Massey MCHC (RBC) [Mass/Vol] 33.0 g/dL Normal 29.9-35.2 [facility] Comment on above: Performed By: #### C BC #### [facility] [address] [place] [address] Dr. Steven Massey MCV (RBC) [Entitic vol] 91.6 fL Normal 80.0-94.0 [facility] Comment on above: Performed By: #### C BC #### [facility] [address] [place] [address] Dr. Steven Massey MONO # 0.6 103/ul Normal 0.3-0.8 [facility] Comment on above: Performed By: #### C BC #### [facility] [address] [place] [address] Dr. Steven Massey Monocytes/100 WBC (Bld) 8.9 % Normal 1.7-12.0 [facility] Comment on above: Performed By: #### C BC #### [facility] [address] [place] [address] Dr. Steven Massey NEUT # 3.5 103/ul Normal 1.4-6.5 [facility] Comment on above: Performed By: #### C BC #### [facility] [address] [place] [address] Dr. Steven Massey Neutrophils/100 WBC (Bld) 54.3 % Normal 43.0-75.0 [facility] Comment on above: Performed By: #### C BC #### [facility] [address] [place] [address] Dr. Steven Massey Platelet mean volume (Bld) [Entitic vol] 10.0 fL Normal 9.5-13.5 [facility] Comment on above: Performed By: #### C BC #### [facility] [address] [place] [address] Dr. Steven Massey PLT 174 103/ul Normal 150-450 [facility] Comment on above: Performed By: #### C BC #### [facility] [address] [place] [address] Dr. Steven Massey RBC 5.00 106/ul Normal 4.70-6.10 [facility] Comment on above: Performed By: #### C BC #### [facility] [address] [address] [address] Steven Massey WBC 6.4 103/ul Normal 4.0-11.0 [facility] Comment on above: Performed By: #### C BC #### [facility] [address] [address] [address] Steven Massey LIPID PROFILEon 09-23-2021 CHOL-HDL RATIO NORM SEE BELOW Normal [facility] Comment on above: Result Comment: 3.3 - 4.4 LOW RISK 4.4 - 7.1 AVERAGE RISK 7.1 - 11.0 MODERATE RISK >11.0 HIGH RISK Performed By: #### B MP, LIPID #### [facility] [address] [place] [address] Dr. Steven Massey Cholesterol [Mass/Vol] 201 mg/dL Critically high <=200 [facility] Comment on above: Performed By: #### B MP, LIPID #### [facility] [address] [address] [address] Steven Massey Cholesterol in HDL [Mass/Vol] 35 mg/dL Critically low 40-60 [facility] Comment on above: Performed By: #### B MP, LIPID #### [facility] [address] [address] [address] Steven Massey Cholesterol in LDL [Mass/Vol] 131.8 mg/dL Normal [facility] Comment on above: Performed By: #### B MP, LIPID #### [facility] [address] [address] [address] Steven Massey Cholesterol.total/C holesterol in HDL [Mass ratio] 5.7 {ratio} Normal [facility] Comment on above: Performed By: #### B MP, LIPID #### [facility] [address] [address] [address] Steven Massey HDL NORMAL > or = 60 mg/dl - LO W CARDIOVASCULAR RISK <40 mg/dl - HIGH CARDIOVASCULAR RISK Normal [facility] Comment on above: Performed By: #### B MP, LIPID #### [facility] [address] [address] [address] Steven Massey LDL CALC NORMAL SEE BELOW Normal [facility] Comment on above: Result Comment: <100 mg/dl OPTIMAL 100 - 129 mg/dl NEAR OR ABOVE OPTIMAL 130 - 159 mg/dl BORDERLINE HIGH 160 - 189 mg/dl HIGH >190 mg/dl VERY HIGH Performed By: #### B MP, LIPID #### [facility] [address] [address] [address] Steven Massey Triglyceride [Mass/Vol] 171 mg/dL Critically high <=150 [facility] Comment on above: Performed By: #### B MP, LIPID #### [facility] [address] [address] [address] Steven Massey VLDL CALC 34.2 mg/dL Normal [facility] Comment on above: Performed By: #### B MP, LIPID #### [facility] [address] [address] [address] Steven Massey PROF CHEM 8 (BAS METB)on Anion gap [Moles/Vol] 12.6 mmol/L Normal [facility] Comment on above: Performed By: #### B MP, LIPID #### [facility] [address] [place] [address] Dr. Steven Massey Calcium [Mass/Vol] 8.7 mg/dL Normal 8.5-10.1 [facility] Comment on above: Performed By: #### B MP, LIPID #### [facility] [address] [place] [address] Dr. Steven Massey Chloride [Moles/Vol] 102 mmol/L Normal 98-107 [facility] Comment on above: Performed By: #### B MP, LIPID #### [facility] [address] [place] [address] Dr. Steven Massey CO2 [Moles/Vol] 27.5 mmol/L Normal 21.0-32.0 [facility] Comment on above: Performed By: #### B MP, LIPID #### [facility] [address] [place] [address] Dr. Steven Massey Creatinine [Mass/Vol] 1.14 mg/dL Normal 0.70-1.30 [facility] Comment on above: Performed By: #### B MP, LIPID #### [facility] [address] [place] [address] Dr. Steven Massey EGFR-AF NEW ZEALANDER >60 Normal >=[address] [facility] Comment on above: Performed By: #### B MP, LIPID #### [facility] [address] [place] [address] Dr. Steven Massey EGFR-NON AF NEW ZEALANDER >60 Normal >=60 [facility] Comment on above: Performed By: #### B MP, LIPID #### [facility] [address] [place] [address] Dr. Steven Massey Glucose [Mass/Vol] 109 mg/dL Critically high 74-106 [facility] Comment on above: Performed By: #### B MP, LIPID #### [facility] [address] [place] [address] Dr. Steven Massey Potassium [Moles/Vol] 5.1 mmol/L Normal 3.5-5.1 [facility] Comment on above: Performed By: #### B MP, LIPID #### [facility] [address] [place] [address] Dr. Steven Massey Sodium [Moles/Vol] 137 mmol/L Normal 136-145 [facility] Comment on above: Performed By: #### B MP, LIPID #### [facility] [address] [place] [address] Dr. Steven Massey Urea nitrogen [Mass/Vol] 17.0 mg/dL Normal 7.0-18.0 [facility] Comment on above: Performed By: #### B MP, LIPID #### [facility] [address] [place] [address] Dr. Steven Massey Urea nitrogen/Creatinine [Mass ratio] 14.9 mg/mg Normal [facility] Comment on above: Performed By: #### B MP, LIPID #### [facility] [address] [place] [address] Dr. Steven Massey Coding Summaryon 09-17-2021 Coding Summary HTMLBase 64 ZwfvklcnYQz3aCj+PGhlY WQ+BK1BXCLrP60xqICsuT 8FT7aWSQ1FXXAKCMKXSP1 APF6klMD0BYytW1RekxEe JxzfqLElMJ26NUs4OAT7h DqtUVttvQ4ewGTvM6b9Gi JkHC03uT75LOmjKYNjQzJ 3LjZpbjsgbWFy O9rvYaHfhZHcYqt+PHRhY mxlIHdpZHRoPScxMDAlJy VruZvnXV5tCa6nJMMwEOK vbGxhcHNlOiBj z5arKMYmCHabKS6liJbyC 9ZpmAB9NGUbj8m6Ec80eA I+PCIeZXR1yTvuCJrqg60 2EsGcd7smQBZ4 fGThCDjjPUS2L12ym7H7B VSdFQGdPOT1rNT4wE7ybO dsaalbU9DtdSSqRwR0RPC 9oLDxxR8mbLyh wgjxbY9sRat+G60FUR6AT EDCDP2XIuu0K1DtUvdxpC I+NC87ZPXqAD75hDQoxBB xi6wihGq9GmDl UKKtZQL3dNawTDfuf5YnC HCfU68zrDBde7B0ODWbaG tprUYeNoMyfSR3jM6uTRt ttkfkz4uyfcyh Szfbi5qkdy80xV50R36hJ NwlBQMzMUZ1AUZuEYUirV loch4jwO8fTc7+EJooc9p cf2bnsDy6PsLk TLIkhyGerDgqACX9q3CjF t21W4LuiRgik5WwDko8pr 58vAIqr6W9fHH4PKmgALF kwV9iAQbqGyH1 WVHrPtNtmD67bIFuIOwbK q6oqZoqcWuaSO5wHCExoa prCMVhtS4mRTGybWEluUe hND7qOLVvbylr j959XvVyOYR5VEZsjCDjH 8BwqK7xJyEnZDKdYQBaC6 BjiUCqLAkoM397EBxyKzL 4RDYgleZjI9Tx JMPgkAwlPsJ4k5J9Ze5Vz 4NwejlrYMY9WHdmGKX0Ym A6NkFfBjE1T5SbIxj3JOK kcKjdVL7gD4Sk TEXyepzoskxtlIQ0KXJbX FAhnU01zSXjTHpuAp3yj4 K2f486AFZaIANaeG72Jm4 udDogMTBwdCBU vB3fjmtyq6gvgqtbYlLyK UGdJDn5IRk0MGYpzVndEz IkKXL0OtH6LWV6dHUheO3 pvEbvenqfsI4n Oyc+Z24hdD0gGBJ2WGA7n ftkDEMaacNyMB81IU88Z5 RyPjwvdGFibGU+PGRpdiB flMofBL7qTfAr o7djl8DoFDkzN1YlUWIuR OubKkn0IEMwIBN9kVZ7tW 5wZGVhWCjqb6R9bDX0A1R gazXcqz0qr4kd LREgWQniY40pxYAql4E2M EJmaED6GRDbhHqmUnVbhL 93Oyc+XSKegFahe9SwGqm sm6bjr0aocSn9 YdIeGANukoBfaJayGSL3l 5KdIw53E81tHBvwXQIdCF EnHQOeDOTarKmbri4ppJ7 wIi8+PGNvbCB3 zDB3kQ2bEADqPoG4VPlmE 871GmQsbHRsDmjec6jbz7 kgxNw6JgAlAMDudlLymDt lGBY6x6OeLu62 T78fWCczICJsRWOuFKGmT ALakFenbu7ttX7fRr1+PC 6gb2pdoj37pP22iTW+PHR nPJA1iGbkQYss LYYlgR0xMCmaJvT0UQGxF zHqrU72zSAmPYezTg8dvD iviSuvQD3jHPRaucldt03 6UiYmx9dnKUAd vODzFJbqPGF0U91ky3I2H WOuVGVyRQP2hNO2pO2vhK lnbjogbGVmdDsgdmVydGl fPTgeSKrpC505 IHRvcDsnPlBhdGllbnQgT wLmYEj1R5AzDyt7TXRurW tkKL9alJYxCWoeCx7mhDc giFidGA7oDKVv arnim165PkXhz4lzIKCpp VItVHrtJQV3R95yp1V3XC EmLSMjEKT7aRX5sE4lkDa nbjogbGVmdDsg laMfoVpjSKpcYLtbX060N HRvcDsnPkJpcnRoIERhdG J6QD98IZ70fMHei7C0kMI 9W0EbXPUwrkoi oagwsES6UVYwTGNrhX03Q j6csDenZj8uHHXaFUP7RT RnrLUmU2BzwU3dYsMgMDF vAQUeO6ItyGJk KPgrT888OEvtOjJ5MECpn dWjD3VfDFJwbLyhUeN2y1 Z4Vl3VZ9J1ZA61FW58fKY uu6H2oVX2X2Fy SLVztbvvmmxxuKY7YFSsA AGfaH83Ue8jfOscXe0kVF PcOLI1GNYmiUOhQ9BzcB0 yOiAjMDAwMDAw N4NxtHFoMPsaI987DOlqO cS7DNNxepAsD1CtQQQueY cmThI5h1S9Fj6VGEo3PQ2 2OF80yNUud0T9 tEC2Q2DvQEQquypnxyhbm OW5VRQeICWtnY23Ec7avK ltAb8mNGCrCQT3NDLtvQC qD6KbzF6rIbEo FSMuKGWxA2TasVAeZVttO 114EZxtMcJ9KPQlurDpA0 DpDOKjgVnpJzX8i4D6Fe0 IKHMmYK81QJC2 wOT9XA23AO95J2XsLwvdo GFibGU+PHRhYmxlIHdpZH RoPScxMDAlJyBzdHlsZT0 fLc9mKWTxUPAk dPhmgFVoZxVpy5ftNPCjH TzvRQ3bfXzgW2QysNU8OY Hem0x0Qh90V30gQ8TouJJ +RONpxFF7iEP5 jQ8uYdYwYjX7NXigM455F rRmlSCcNiota9rrt6dtjE x1TjX0RCYwhbBgfWioCFB 6v5YcNt43C15x IHdpZHRoPSIxNSUiIHZhb Stwul7plS5pCu7+PGNvbC X1iUT8wE9rRaLhHcT6DMh xO808OjKwiDNt Uarpj3nkc0zlkMk5KeCfC CXdabKidTwhEKB6l3SeCm 67M5KnxWrhb5AwRah1vl6 3lBYor8O0wOB1 N9EkMPYkmsqroVXkxZgaR N2xJQEblaypFGHgbB3zJZ MmZ8b9TtFwMlT7JCqbA0X euqV2OLRezEXf XZtcJST8V26qi5O8QOBjO KIuAZY0pJY8eW9hrAgtnh ogbGVmdDsgdmVydGljYWw tQQqsA087ZWSp rHntSNFvjL8yVEPklGUri IloSI0oJZEaqqgoYggOO9 FID8SgCBQZBowxAqcwyYC +LWNoUUR4vUpd TRfiEFKkhI4nAFYbV6i2F bObEhZ7VMtvQ1VzLSQphf goMb14jQ4iNuPeAwV5NYx vV9IfevW5MNVx bBYyUJugFOV9R44nv8U4V MGcOXDmFQN3tVR5gE1gaA lnbjogbGVmdDsgdmVydGl nOLeiOJlkC224 QADxuRjqDlE8AoM3HpJ2S Qs7O2JkXlq0WAEzbZlrJB 3tuJWaNQixHl2ybDavsVb yNS0uAFIozzyk SEAgcC6tGAXuaLBqqTbtE Z8qWYZxhynfj053SgMcLI J3LVWnmWSbL8EozS0tOoL aDBTkJTQfM1Lv bCSeBLqnZ005BCobBtP9Y TZbaxXbN6DbCUZygPgwAu C6b6Z1Dm12AiOCFPPztel vdGQ+PHRkIHN0 lUcyVMdmDZVtyL0sLJHdB 3i5CrEaXvS1SYekH3AqCQ VutquxWw53iJ5rMcJqVnK 2VQyaU3EvdwA1 XTRraWRaTHjhJKM0X05jc 0K8EOToEWElQKJ5gTY9iK 1hbGlnbjogbGVmdDsgdmV ydGljYWwtYWxp H202WMDslCdbJc5QIQE7U 3ClKmo7QAWypJkcFW5ktT ErRTuiHe2yqBmudDesWN9 wNTBpbjtwYWRk sX6pBHDpgUIwhVvoSO0gL KFvpdgoj218PjTpZDZ3JG VbuPRtR2KgbU6yBkXnXKX oDVKeU4VrfMEr JBbvV746KUkeRnN3WGSuj gAhC1DbPBUwbUcaWqV8z9 L5Vo1EDAvvtYS+UD66pa1 5L5DnTfrwMgz0 DLAxHSV7dNL6lV2mKFDoC Yxqm5K4qZM0T5DlwzOpxg 9kp3mbAZUlJFtcJ57aaFR dc7G4OIGezVF2 DRNftTbwWtDjfG36Twk+P MCmtHbox6HtRvrob1pig2 grlYc6UfSkQZVbtxDvcWa gKVH8a7KhGb39 X30nUWzlBCEfUSHpZKSkR WEnhSztqy4qcL0wDa8+PG DkgOW8kBU2yM0gTlLwQrL 4FKktL014JkUx eFPiDtqpp3rda2yazAy7H sNgFMEozuQqzVcnDGU4u3 AhDx11P5HsiIrmt3YfPqm 3js78yBRnn2I9 bHX0N1HoDIYeveroyUErm BkjPZ4hZECcrdcpZTFicF 7pBYOqL4h1OzQiQqI1JWk yB0HifsU8MBKk hNEkLCXwbTLTkP5tbremq 4crrxcrQjBrZHBtLVv3WK w6TGDqbXjjFaXrNMF5RmA 5JWN2dUWxeZ9b uGwmdfaesC8oQka+UGh5c 7jjwJEjYH5voXM6ME33PQ 90lINay6X8hHY4S6XpTPQ pbmctcmlnaHQ6 XEIgNVWzkX48Ol5izPhlO i0oIMIoSPN9OZNuhVZdJ1 EpyX9xXaRbQXNeZPMhK1U eeMZhUGrvR549 LQeeSlE2WZAoqwToP2KrL VLazJyiRcO3z5A4Qh0NRP 64WE30LR77zMWxk9R6iQJ 4A8EuMNSvdefb jgjwnAE9IEYjNXFjhB21V y1lhFrqIt8tBEOgWOY9PL NolJIsY6KouE4wPdExRLS jGXJaD1BsnHIp DYyfR909ASanLpV7BCPfg fUoS1LoBAEaeXckVmS9d8 K4Ui5EZr26JH91IV97eTV je0S1tPP9E6Tm QTMrrnsevwkkuTO0VMPgY VFegQ64Hb6peZszXb7yLM LpHSI8NQTqzRBwW8XzlP1 yOiAjMDAwMDAw M3IyuZInUSylB250MVgkS gB2FQZwuzUqJ4EnWHJdxF scZrT9i6D7Lp5WLPnimvx 8W9MsHzynpEK+ JA98MOUsKH61jLAveFXwb 9ydcZx8KnNyWOJyYLX4gI uaETcmh9LaJTLvD94maKP nd3Z5PJKojSev cHN (more content not included)... [facility] Coding Summary HTMLBase 64 IlsesidtYYj3lCc+PGhlY WQ+FZ1MHZXxC92uiAYbhM 6IA5yALF4LCWUUJONAXT7 LYD8hxJD9GRazL4WvupOl DijwzWPzJX60IKy2HVG0n SruRXbsbM2dfBBvV1f5Mr XqGM10jG93DXitHBRbLhH 3LjZpbjsgbWFy Z4lsEtFcyHNgMrl+PHRhY mxlIHdpZHRoPScxMDAlJy GeuVmlXZ4tJq2aADQhMFR vbGxhcHNlOiBj a6wkZNLbAEapSA6lkSmlK 2WghUK2LPMql9n1Lc47uY I+FMGzGMN0xLhaGJkar75 4QuSzr4lgWZY7 cXIjSBhoMKU9X01sg1X0Z IReBRXoWMA3hPQ3vO1xiO fcakmfL2ZxeOMpJpO5YNZ 7nJArgB8gcXaw vqiwnA5tRmy+J84DHO4ZV ZKYSH7ILat5I6ZwIxuylG I+QQ66ZBVrGF49zLYobPN ew2owbMq7NsDw JCLaKQS0fOwxUPjlh6ZaP WGoY58unUZgy9J0KLZdfC ukqXWoQfPiiBR0gU2iCEz bfuack3vdmgil Ndknc4ofga04yP66B28aJ YadTXJjBSA0RDHeRPNybV mjbc8vpG2rAg9+TFwtr7m gi2zfzFh8VeEz XRZosvGzpVpiTGR0s6FvX v71Z4TyxPrsv3BpAhm0qr 47oWAdo6R5oFY1RIiqHIJ qmI7tKKnpBkQ6 WRLjZoTrtP45mYQiUJreG v8jcPnvxIbkHA2bIQCpmq mgWWTysI4pBRWheGXyeQt yOH7bNRKrsran k999MfLdLMJ3OHUwpZGxD 0VyhQ0oQnCpDKAeGAYuY3 YdiCJiHNwpO959YTcrDfC 5JZHhfaCiF8Nc RNDvyCekYyN6q1U1Nn8Sd 8PkahgyQWV4VHfqDDO2Dn N4CgJnGzC4I2HsBcw8ATL aaUsgJU4nQ7Ns ZXOtkkewqqxpaJS4AZStN XCelU06gTOmORwzNh3ql6 Y7r905DAVsNQToqN81Cy6 udDogMTBwdCBU eC2pajixk0zflntuPvEyG PPbJOz8PGa5FRZztKqiVj ZiSBW6GcL4UBL9zRNhiK7 ueGvzpvzxoK6e Oyc+H83rsT7jKFW7WAY9d dzyGDXxceMiLK58VO47V8 RyPjwvdGFibGU+PGRpdiB ohMpkSV4hUuGo y5mzh3XuVXgfK0XmTBUnL DfdIwg8GAIhDBJ9oSN9wX 5nBPWbYGxlg9I6aCU9P0O sqzWbyh8vq1va ZPBaXEckD61xuLErn8D3U VUmwNB6USOweMhcVeRqoS 93Oyc+CEZnuJnif2MrWou ld9qpv7xniGv7 LsJrTAHexyYtjIdvJQN7z 0DtJd57J77vHEuvUKZyPR OdWYMrIUYmhBhjst3rnP3 wIi8+PGNvbCB3 fTX7fI6yYQKxRpE6KAavN 701ZsTpqWGoRtnob7bpt7 ghtOe4NmOxTKBogcFdbKg gRWR7a1MxVx62 I90jLQkpFSQnAEKlDDDdL GPoxCrtrb7nrR8oPg1+PC 6hn7obzy22cA99gBT+PHR fNDU5kGoeUJun KBVzhG8dYBxyCkZ9EDEmJ lSxvH62nFXuPQdeEa6rkU cobHhqSA8xZCQzaplij21 9PeTge4jjXNOp xFMeICkbTQP2A08vs7X4S HUaHLMzLBD1lXK8iA2pzX lnbjogbGVmdDsgdmVydGl oQBzdHOwkR034 IHRvcDsnPlBhdGllbnQgT bXkCSx5G9GvHnx4RSVpjP xkYE1ngQFwALgaKi4msXw mcNxqAA9yVJUt ylklo871ItKjd8uyYWCjq QMoRRftRHK9Y52ub4N1ZB ApXFQcQAL9wXF6eO7rbBe nbjogbGVmdDsg joPiaSynDPebVJcnS970B HRvcDsnPkJpcnRoIERhdG U9CQ73DM33bCRjh2L8jRI 5S1ZaAXZevbvs qduvxVK4TNCpIIXnsQ80D w5keGtvLs7rSXSxLNI8JR ZkuRVsP1GfrQ1wPxXaREK tNFLcT2DkkKRy FSdmY712SObsDqL6NLCoi fZtJ2HrBYUgcYbcQmI2b2 U9Ul8WC9W0BZ48UA96eOW od6Y2sEV1W7Kj UZTgvtdctevlvOQ2DXNtC TXvmI93Ua0enKqgXl9fZA LkRFC4GREwrJUwN0OsoD7 yOiAjMDAwMDAw B5LltKHlTBskH850YFytS fQ9FRHgyrXvJ6QcUJUkiU snAfY1n1G5Fd6UBDu5LL0 0NK21jTRjb0R1 dOH0J9BsQTCkpidswqgxc QS5GPRlBLCnyC16Xx1mfE zrMu4qNEMkWSC5HZSahAX hB3BfmK9dHqJt TZVmINXrG5XrtZNiCKeeN 609FOcrKtI0QRNvmrJrC9 WlMYZixCagRiP0d8G7Px5 KXTKjBN41MFA2 vDI9IX63ST84E3WsLitlw GFibGU+PHRhYmxlIHdpZH RoPScxMDAlJyBzdHlsZT0 dZh2uYYYkUALq cDevaQJcIlAlc0ziLAIrS PrfRY8hpSuhS2TtdZZ4SE Poo2e9Jl37L44kF0LhwFT +WCPjyII0lGW8 oQ2bCqSgChH8CCptI896K jRoqWPvTghul7ijv2muoP a3VfN4GODttjZlaKqwCFN 9c1XlPk82E12o IHdpZHRoPSIxNSUiIHZhb Urqyh7rhP0eTt7+PGNvbC J3fCE4kO1xGvPwFqO1QBu iM303EmJzkTLv Qalga6trw8gavYc7MvChV MNnutHzgFngEJL2j7DjHx 12R8LtvPdjx7YnXka9et0 8cGHiu9E2rGS3 V2MkSEAwrelvbRIloCepL F1kOCKkirgyVVHvwN3iEL WrI1n5XlEtCeY5PUrjL8O wghR8SYQrlQGc IVndZDT8D92ld4Q0RJEgW ZNhUJS0wBU2yP9sfTuwwv ogbGVmdDsgdmVydGljYWw pTEviC284DLEh aSlxHSXtdG3iSGPbcUTmn JrsZC8tYDDighhcPgeJQ7 UVB3SaNAETLynzIvzieKF +PMVeOGS2eKjj IMbaMLIjgM5eZLNzF3g9B xVbCvR5WVkzY6RkZXRtoq yhYv50jF6aGrQcQgX8EWc nY9JuwlL4EDDz zTJuLPakDUH8R78fb7Z5V HPeFTLxAJE9xOL9fJ8imC lnbjogbGVmdDsgdmVydGl xRVxqAEufZ993 OMAiaLubRcZ2BmQ9VnW2H Dp9U1EpWjy3ZQGfwEpzGC 5ojPIvSCjwSy8scNugxPd gHK8sZORppone KMRgzL0fTZQkaSPxdFmiF T7lTSGdnecpl515NhLxDG T2IPIweCSlV5JcyL0oJaK wTVQqMHAeO9Rk tUMnFLtxL628VZpjInQ5P QMacqQbI1VrYHPspGtgYr A7r3C0Gv24BwEIZAXcvdb vdGQ+PHRkIHN0 yVxqTPafJDMioS0oBGXoT 8a2JcImJdL1PBnkV2WxSH KejtlyEc38zX9aTmQyZaB 0AMhgK3XywbO8 GKEayWWlLQhiVGK9C21pn 9F1YXHqHLGcIOO3bXR6pO 1hbGlnbjogbGVmdDsgdmV ydGljYWwtYWxp C225XEMpnXrpZx7OCYO3F 9SmKlp9VFPcrNwzOO6ctS GaMGlwAw8goGcquZwzVI9 wNTBpbjtwYWRk hS4xORIlzKWbzUugEN0cG UTyxdgle431KnRiGWU4SU SwaTAyY5QxbC8cDsCsCVN pJBVqV0IiiFGv GKrpV165DFpmElQ5ORUsr lQuJ1IeSXXndThnNnJ9s7 M4Fp3UvSXhW7JyL5f4Z4A kPjwvdHI+PC90 CWIcMG86lIYdqGSpm9sij Tn0ZnXcDPVpAXQ2nZkjLV hkw6ShEWMvN98gwOAnk4H 6IGNvbGxhcHNl LhRboYB8eH7vTIwkifegq 0itghlfTzehy6tgwo84qG 31J86qWGzxEALxCBXmCNX rINVxoTaazj4g gN2yWt1+GQVrsIM0oQM6g B3bIoHlOyD9DYqhA419Uq OihZYjNyrhb4qsc2hnyEq 9IjIwJSIgdmFs wEtaFIM6q1GxBh53R57jS HdpZHRoPSIyMCUiIHZhbG cujk8cpM1dOa1+KY1nc3e rgy96mM64nDD+ CPOnXOL5yQkeKImdOJVxj N9hLXdxOnE3ZQKeHfSfoV 22iDXrJEjfLu4lpArpnUt eVQ1dVICrmpwe c164HpHix5iqXVXggTNyI UjyLCD6C30sc9G9GRAyPW WhTRK9cTR0oG8tyVxsczh gbGVmdDsgdmVy cLtdAWyfCWdrK596ILPpo WziMzMozMXoY7gzdrKTSA 1lOjwvdGQ+VJUtVNW1bLu uRMovVBNrcS0d MBLcH5s2EiOsQdP7TZpjI 3FnonE7YJIdrXRhASZauI ZLhF9tfhxew5yqbwegLyB yQEXySTv1GSe0 BSCiyOnxFaSdYPJ5PhG5W IJ9vNLbbE8utMuhujrtzB 9wOyc+RklOOjwvdGQ+PHR zNZD1bXdzNWyf MYCihB6vQVIcJ9s0ZhBzE lM3LPxbD7DmzqH5XRQmeV QcPAMcnESFmX7ltqkss2s vcjogIzAwMDAw DCi4GHq1AYAmgYjkKoNtY II2FbG7WDJ0tJWfnF0uuN nhrenrbI0sPwe+TVJOOjw vdGQ+PHRkIHN0 aEhgMIytJXRtwB8pHPDuP 5k0IjAuZdD6WSmkI4Qppw F3PGTduITxPWUmyKVKwC1 fjllcq7wyueif XxDfTIDtZDk3YQm5LLGpg HtbRoXxOTQ0VaE5YVC8lR EooM6wwKunqfdwzE1tSoy +RRE8FYU3IK56 MR04C9CxPijpeURxqMD+P HRhYmxlIHdpZHRoPScxMD CuTiZqhGnfBF5hCb0wGFA yLWNvbGxhcHNl OiB (more content not included)... [facility] Coding Summaryon 09-12-2021 Coding Summary HTMLBase 64 ZgidxmyjPIe9zNd+PGhlY WQ+JU6AOVGkM61zqBKtiK 2AB3vSUL1AOLBMZZOTRL4 EWN3gpQX1BSayD1LejmDf CyrwzNWvFP29FTy8DCL9p WdvNMqwvX4kzWVnA1f1Yl NtPK02jO74UWyoVDKiLlJ 3LjZpbjsgbWFy D5hxFkEupILpOfi+PHRhY mxlIHdpZHRoPScxMDAlJy DnhAypDZ5pHz3xHXNnTME vbGxhcHNlOiBj r8odWBVjQVsyHI6wmMqaX 5VvgRR9UQDhv3p4Ss96yR I+OZYuFKY1tFkuTHbwt00 4GcGkg9slVQV1 nIFtGXdlFED3C80nf1Z0N XIzUYQwAEV2aUL0bR2fdV appplzX2CfdMFtLpQ6DJU 3cKOgpH2xaXit knbplJ1sSca+S47FIS2OW QTBLY9RDxl7C8KwSdjunN I+RD40NAMmZQ09tGPdhXB kr8dvcFz9NfHe AFXeKXA1dKdaPEpuz2AaV JZyW11qcKMpt1E6AKAdgW vxyRLaJgQkfEA6sI3nFCb wrxucr4kdbrlz Vmtic2xnog20mN42R69qC XyiIXEnIIH1BHTlREChyM mpsr7csO0fMa7+ETdbe3p bc4xdqWm1HbNk MVMwohQxjGihOJS3p5OeW m01Y5BdkZwvo9EmYqw5qg 76oYIyv0G0hQD7FCbrGYS bmE6kSBohRiB7 WLAnYjRiwF35dSEaSLkcX u2inWzvgKzoXV0nBAMuvp dyDDKuoX0kDAHmtGQuuFo bLK9aLDRztcfk c963FtEuXGK7THVwcPElH 5HuhN8zBtRuYJDoFXIfF9 FjeZCnTDdzF086RYrvZlF 2DPFqesCrH8Ea XXMjxGgiRcY8p4A7Tc5Pe 1TllezrYUN8EBkhEIY2Dd EuGzYrGtD1K2VnIhv4LXY xyZzuEA8iO2On WQJhbolvyrwtyWV3NKIyK GUjsC12aXNlMMhrPe9kt4 J6k768MVRlRAYhxI59Jn0 udDogMTBwdCBU bT1phzrcn4icenzgXlLqW QWoQAy6GRa3FLMltEwiNi ZcJOE7XbZ8FTY2lWZjfF8 nyIgujpmznG9w Oyc+W31kqL6bPZL1NLH6j yvgCDPoiwCvPZ51TR03C0 RyPjwvdGFibGU+PGRpdiB qyQlsVI7dWzSx j3ure0EuPHgnX9SeKRBgW VxrOja4VJCpQZQ3zBZ6bJ 3qYFSrMHewx5P6wXH2C7Y gtzAncs8aw2id IIBwRIjrN94tsFVos1R4F RHwmAH7VLOlxXjgCtYphB 93Oyc+DCNdbNgiu7CfPqn xr6hgs8jilXo1 RrVbHECxfhUogKfdABN2r 2VzGg39X25mNByfEGUmNC OpMSRaRCMpxCcttu1taE2 wIi8+PGNvbCB3 bCC0cD4gWUGkUaK4RThsV 853UcSpwMFbZvsnm9qbb8 sckQw2GzNiQVGenzBhsQx gNDM5r5IkZs40 L81kKNczTVXpVGMfHGVmW LCfjPurfg5ogZ1eYa3+PC 9tb6nppz73hG62gDH+PHR jTGC1xQznLPik DDIgtR7fOVdrJmU9IUCqD wRznW34rVHfVJkgRp4evV ujwCbaYX9wURGomxpwn69 8GrMyc2pzLMTj mIXnVUglBXV9O58up9J4G YHmHTHtZCS9pCT2hV2ntG lnbjogbGVmdDsgdmVydGl qAZinXSilA140 IHRvcDsnPlBhdGllbnQgT yRmSAz4L2TvIew9UVFbsD vkWJ6bnNHvPXmlSy2rcFy mzBilMK4hTLYr umrzq631McCwj9qgZMLon ZDxRAlhYTI1F92vc0Q1LX VuZBCpGKR8cCZ4hG4dbYv nbjogbGVmdDsg bbXnaDocMDyzPXnjE282W HRvcDsnPkJpcnRoIERhdG K6TP40KZ07aIErn1R5oUA 5Y9OgWCWhdjfp xegxvSH3BGEiIHOjnE64H d6kuPigNe8dJIJhLHZ4VC VqlWCnV1DysJ5bCpJzVLI vPQOmE4IouVDl EAiyD160XWyxZcS7XAEaj jXcN9OpBUEvfRtcMfM0t7 R4Gh5LV0X2IU46UQ18dSR ji0V8sNH2E9Wk GIJpqhdsbygatLT9XNYaZ YJtsW34Lr6okDabGr0dUU DzAJN7IMIkhKXsY3DquH3 yOiAjMDAwMDAw V4UzfUKvGYxuL551KYmbO lC3NODnloMeZ2MjJOTpaU sxRpE8i6U6Ek8JXDp2NA8 2SD01mPJja9F7 iGU5I8OfRXUrwenxrlovu WV6ZQXhGHJprG37No5nbY syBs7kRNMpNCB0KESskOW gK3LbzU8tQgUw IZMuEMQvX0WlrQQxFVqrK 408AIyuPrU5OFAlfpVuH4 EeQAGyfZlvInX3c2C2Bo5 XQJIvLC97FQC8 sOB8AN89BC64G2JuQepzm GFibGU+PHRhYmxlIHdpZH RoPScxMDAlJyBzdHlsZT0 yAm1bDMTgHWDp oZohdXHgSgLaz0sbXEQoW IixFZ5xkQglJ9ImqYE2TR Mpa5u0Nm16G08zK2KdnAC +SHGggRL8jFR8 xD3mTiUoCoP2KAmcZ166E iXlrGBdEncxq3bjm7qymU k9EqN3BWDcgzEiqTnjFUF 6g4TpAq26U56q IHdpZHRoPSIxNSUiIHZhb Sqegy8xwK9gCh7+PGNvbC T2wTL3xE2pCnEhZkP6UQm eH790QqUmpNBl Qgcor5obb2eypVl0YpAdK STsltZinQeaQGR0k2QfQf 17T2RfuIivr9DiRms4im9 5dBLus0F2qXR0 T2PsXSEtvlbgqCOyjWyxL N6rIZJgsoyrXZSybS4sAK IgM3p0KvVjKrO3JVvgG0K lahQ3LNYguPQd PJgzHXZ9O15zl2T7KEBrA NZyLFY3hKD8xI8uiMwlxn ogbGVmdDsgdmVydGljYWw bAIfaU911WQEv gZusEKYtzQ5sKAUtuNXqy YpaEP9lBUGiixihOhuDX9 PUV7OzDMSOZyxgDxpskXD +ZFXtSMJ4lEsb JAftJCJpqG4hLTWmF7s6V jScOvG3URitU4FeGBFwcc rdUk00qW8dZjTnEqG9OHc wF6AcdxK3KPMc eQIyYIznWIJ9E29rr3Q9Y AIcSKSeMBP7nBL3cM3rhT lnbjogbGVmdDsgdmVydGl nNLquDSgqN410 QKOecMamUkM0TwL9BdD6Z Yd1M8UzHlp6ZTKqrZncKX 7bpEMrIXkaIk9ceMhewFb iMS9aXJIsjdwl YIWisA0fZYAueQHydRewV P7dYGMfjiwad430FhSvDN W7LFJwqCOuB4NwkK9cVnO yHSUwVGGbE6Lb xJMsHIvlF112EYbzMxF6R JBpekJeV1AjEKLraZziMi O2v2A6Es70NrYCJKIusdo vdGQ+PHRkIHN0 aRnbXBrrVBTcgJ4vFKEzL 7t6MsGnJwW1PTkvM6JyLU PdvoyrOk67sZ4wIpJmVbL 3DApzP7BsbiX5 ZUFspMLfJLfqMEG5Z68ce 7Y7JWCiEANtPZK1wBE2qQ 1hbGlnbjogbGVmdDsgdmV ydGljYWwtYWxp C583SFVidSraNc2YSKH0B 1CyDyr6KRTaxGhoPY7oeU ZgPPheNh6piFmkyXbaCM4 wNTBpbjtwYWRk wN1oSLJqbNJomZecPD4xQ LHhanohp835AfUeCJT0ZT PygOHkM2TygP6pLkCwDUO eMZToS4TnnLKy HTxqT086DMomHlA8XGPkt mNkQ8RcRQIxzHetJtS9s0 O9Vi4IONpbwTK+TC44xo3 5W1BnKgrfKlg6 PJRxPOX3yFX2uH7tSMIvQ Lrto2W1lZO6S2GhwkXmme 6oa2fqGJMdAZjxW36sfDJ lz8O3VJYzzZC6 UHFpoOeeTqAoxY21Qcn+P YJobJckd9AlOlzgg4hiw8 jlbKg0WeXrPKJgzwCuaFn tVPS1q3OpTy02 E42aBWcoLOXqXFAvRJWcI VIxfRgtam2kjE8lYx2+PG NysBK8uCQ4eY0gXzUyNoV 8FNsvO332KpXo jFOlPyszu2blr2libKj2X jVeRMYwewBlcClgPXN8l0 AvWl79J9EvbBnsm6HzYme 7dz39lZVww4M0 wAL1U0YvFJIfgdbvwMNav LyeFF5cVNGuvxzmRFFlmS 9pRXMxV6c9XtAnPbU9EUt yG9YltlD3WKJd pGAeHYBdjQDPiS9murilp 7khasrpJtGsPZOgCOk4UK o2LWTwzQimRyRaZSU7TuX 7GKP8lYZamK1s iUnhiflmgG8uIzm+UGh5c 3olfZJoCU6hpFK6RS59MM 67sEXvy0Q2pOT4M4PzVPK pbmctcmlnaHQ6 SWSuQDKtnW44Bj4yvOljH e0bLVNdDUY7WDWynLLrT7 IzkL7uKqRgXBZmVGOtS3D qoEYaRUahP310 BNkaOnO1FUWzzsMcJ4UaJ IUdtIgjHnH4j4N6Iv4MHQ 85TS86QT11gDPqs4T3pWZ 3U1IrDVApwefi attnoVK9GBUgOQFalP99P e7opDdcTn5rOCOxWUU4YU CdlSEaK3RzjR3cYbNeZDF jCKZhV3GpwDLi XKssE022PXslVcD1CITtu qKrB0XoJWDnnNhiDsR5r8 E1Wj2PVo92TM70PN80iVE iu6U6nFI5D6Ru DYUxyojbgklzyUT7SGMbW COouH34Vg3emArmPl1pNX OoMAQ9VPEkjBHkV4LgpV1 yOiAjMDAwMDAw D3MsqWJfIHhoJ040XZpkJ yA6HKLmuvHoS3UbOXUqgI niSaC2o5F0In2LAIvxmnc 3H8GhZbfksKT+ ZS30XUWhIJ08lGHkkJPsz 0hzuQv9OcUaHYLbQVR3vR vwRPvlb0HdWEIcP47dlTE tm2Y4PLNmgMzs cHN (more content not included)... Normal [facility] ED Clinical Summaryon 2021 ED Clinical Summary [facility] - Emergency Department [address] [place], [place] [id number] ED Clinical Summary PERSON INFORMATION Name: GAVIN ZELAYA Age: 61 Years Sex: MALE : 1960 MRN: Acct#: Visit Reason: Knee pain-swelling; LEFT LEG SWELLING Arrival: 09/10/2021 10:11:20 Discharge: 09/10/2021 11:40:00 LOS: 000 01:29 Check In: 09/10/2021 10:11:20 Checkout:09/10/2021 11:40:00 Address: [facility] [address] PCP: Lokesh Schmitz PROVIDER INFORMATION Provider Role Assigned Unassigned EAMON ROMAN ED PA 09/10/2021 10:12:40 Letitia RN, Sandra ED Nurse 09/10/2021 10:23:38 VITALS INFORMATION Vital Sign Triage Latest Temperature Tympanic Temperature Temporal Artery Pulse Rate 93 bpm 93 bpm O2 Sat 100 % 100 % Respiratory Rate 16 br/min 16 br/min Blood Pressure /99 mmHg /99 mmHg MEDICAL INFORMATION Medications Given: Allergy Information: No known allergies PHYSICIAN DOCUMENTATION Patient: GAVIN ZELAYA Age: 61 years Sex: MALE : 1960 Associated Diagnoses: Left knee pain; Popliteal cyst; Elevated blood pressure reading Author: EAMON ROMAN Basic Information Additional information: Chief Complaint from Nursing Triage Note : Chief Complaint 09/10/2021 9:50 EDT Chief Complaint knee pain - pt states he has had pain behind his knee for approximately 1 month, feels like he pulled something but has no idea as to how he did, area is very tight and makes it had to bend the left leg . History of Present Illness Patient is a 61-year-old male presenting to the emergency department complaint of pain behind his left knee for approximately 1 month. Patient indicates that he notices this mainly when he is getting up in the morning and walking he feels a pulling sensation backside toward the inside of her. Patient denies any specific injury or strenuous activity that caused this discomfort. Patient reports she was sent from the urgent care to the emergency department for evaluation of possible blood clot. He denies any previous history of blood clots, any chest pains, shortness of breath, fevers, swelling, redness. Review of Systems Constitutional symptoms: No fever, Skin symptoms: No rash, Eye symptoms: Vision unchanged. ENMT symptoms: No sore throat, no nasal congestion. Respiratory symptoms: No shortness of breath, no cough. Cardiovascular symptoms: No chest pain, no tachycardia. Gastrointestinal symptoms: No abdominal pain, no nausea, no vomiting. Genitourinary symptoms: No dysuria, Musculoskeletal symptoms: Muscle pain, No back pain, Neurologic symptoms: No headache, Health Status Allergies: Allergic Reactions (Selected) No known allergies. Medications: (Selected) Prescriptions Prescribed azithromycin 250 mg oral tablet: See Instructions, Take 2 tabs day 1, one tab daily thereafter., 6 tab(s), 0 Refill(s) Documented Medications Documented amLODIPine 5 mg oral tablet: TAKE 1 TABLET BY MOUTH EVERY DAY lisinopril 40 mg oral tablet: TAKE 1 TABLET BY MOUTH EVERY DAY. Past Medical/ Family/ Social History Problem list: Active Problems (1) Hypertension . Physical Examination Vital Signs Vital Signs 09/10/2021 9:46 EDT Temperature Oral 37.2 DegC Respiratory Rate 18 br/min Systolic Blood Pressure 159 mmHg HI Diastolic Blood Pressure 98 mmHg HI SpO2 97 % . CONST: -Well-developed well-nourished. -Acute distress: No -Vitals: reviewed. SKIN: -Gross abnormalities: No EYES: -EOM intact, BHUPINDER: -Sclera conjunctiva: Unremarkable. ENT: - pharynx pink and moist. NECK: -Supple ([id number]): non-tender. CARD: -Rate and rhythm: Regular -Edema: No -Calf pain: No, Homans' sign is negative RESP: -Respiratory effort and chest excursion with respirations: Normal -Breath sounds equal bilaterally: Clear -Wheezes: No -Rales: No BACK: -Signs of pain with movement: No EXT: Gross appearance and use of all four extremities: Unremarkable -Increased pulling achy sensation with palpation of the medial head of the gastrocnemius, patient feels pulling sensation when going up on toes left foot with the knee extended, muscle strength testing of the soleus muscle does not elicit discomfort in that area, strength of the gastrocnemius and soleus 5 out of 5 left lower extremity -Posterior tibial pulse 2+ intact left lower extremity. NEURO: -Patient: alert -Gross CN or Focal Neuro deficits: No -Oriented to: person, place and time. -Appearance and judgment: appropriate. Medical Decision Making 61-year-old male presenting to the emergency department with complaint of pain in the posterior medial aspect of his left knee for approximately 1 month. Patient is concerned of blood clot. I indicated the patient we will get an ultrasound he was in agreement. I discussed x-ray of his knee patient declined indicating he did not feel this was necessary. Ultrasound of the lower extremity grossly unremarkable (more content not included)... Normal [facility] ED Clinical Summary [facility] ? Urgent Care [address] [place] [id number] Clinical Summary PERSON INFORMATION Name: GAVIN ZELAYA Age: 61 Years Sex: MALE : 1960 MRN: Acct#: Visit Reason: UC - Knee Pain or Swelling; LEFT KNEE PROBLEM Arrival: 09/10/2021 09:32:15 Discharge: 09/10/2021 10:15:00 LOS: 000 00:43 Check In: 09/10/2021 09:32:15 Checkout: 09/10/2021 10:15:00 Address: [place] [address] PCP: Lokesh Schmitz PROVIDER INFORMATION Provider Role Assigned Unassigned Abhilash Robertson RN ED Nurse 09/10/2021 09:35:14 Elan Lee ED PA 09/10/2021 09:41:35 VITALS INFORMATION Vital Sign Triage Latest Temperature Tympanic Temperature Temporal Artery Pulse Rate O2 Sat 97 % 97 % Respiratory Rate Blood Pressure /98 mmHg /98 mmHg MEDICAL INFORMATION Medications Given: Allergy Information: No known allergies PHYSICIAN DOCUMENTATION DISCHARGE INFORMATION: Discharge Disposition: Discharge/Transfer to Another Hospital Discharge Location: [facility]) PATIENT EDUCATION INFORMATION Instructions: Follow-Up: DIAGNOSIS: Patient Understands: Comment: Normal [facility] ED Note - Physicianon 2021 ED Note - Physician Patient: GAVIN ZELAYA Age: 61 years Sex: MALE : 1960 Associated Diagnoses: Left knee pain; Popliteal cyst; Elevated blood pressure reading Author: EAMON ROMAN Basic Information Additional information: Chief Complaint from Nursing Triage Note : Chief Complaint 09/10/2021 9:50 EDT Chief Complaint knee pain - pt states he has had pain behind his knee for approximately 1 month, feels like he pulled something but has no idea as to how he did, area is very tight and makes it had to bend the left leg . History of Present Illness Patient is a 61-year-old male presenting to the emergency department complaint of pain behind his left knee for approximately 1 month. Patient indicates that he notices this mainly when he is getting up in the morning and walking he feels a pulling sensation backside toward the inside of her. Patient denies any specific injury or strenuous activity that caused this discomfort. Patient reports she was sent from the urgent care to the emergency department for evaluation of possible blood clot. He denies any previous history of blood clots, any chest pains, shortness of breath, fevers, swelling, redness. Review of Systems Constitutional symptoms: No fever, Skin symptoms: No rash, Eye symptoms: Vision unchanged. ENMT symptoms: No sore throat, no nasal congestion. Respiratory symptoms: No shortness of breath, no cough. Cardiovascular symptoms: No chest pain, no tachycardia. Gastrointestinal symptoms: No abdominal pain, no nausea, no vomiting. Genitourinary symptoms: No dysuria, Musculoskeletal symptoms: Muscle pain, No back pain, Neurologic symptoms: No headache, Health Status Allergies: Allergic Reactions (Selected) No known allergies. Medications: (Selected) Prescriptions Prescribed azithromycin 250 mg oral tablet: See Instructions, Take 2 tabs day 1, one tab daily thereafter., 6 tab(s), 0 Refill(s) Documented Medications Documented amLODIPine 5 mg oral tablet: TAKE 1 TABLET BY MOUTH EVERY DAY lisinopril 40 mg oral tablet: TAKE 1 TABLET BY MOUTH EVERY DAY. Past Medical/ Family/ Social History Problem list: Active Problems (1) Hypertension . Physical Examination Vital Signs Vital Signs 09/10/2021 9:46 EDT Temperature Oral 37.2 DegC Respiratory Rate 18 br/min Systolic Blood Pressure 159 mmHg HI Diastolic Blood Pressure 98 mmHg HI SpO2 97 % . CONST: -Well-developed well-nourished. -Acute distress: No -Vitals: reviewed. SKIN: -Gross abnormalities: No EYES: -EOM intact, BHUPINDER: -Sclera conjunctiva: Unremarkable. ENT: - pharynx pink and moist. NECK: -Supple ([id number]): non-tender. CARD: -Rate and rhythm: Regular -Edema: No -Calf pain: No, Homans' sign is negative RESP: -Respiratory effort and chest excursion with respirations: Normal -Breath sounds equal bilaterally: Clear -Wheezes: No -Rales: No BACK: -Signs of pain with movement: No EXT: Gross appearance and use of all four extremities: Unremarkable -Increased pulling achy sensation with palpation of the medial head of the gastrocnemius, patient feels pulling sensation when going up on toes left foot with the knee extended, muscle strength testing of the soleus muscle does not elicit discomfort in that area, strength of the gastrocnemius and soleus 5 out of 5 left lower extremity -Posterior tibial pulse 2+ intact left lower extremity. NEURO: -Patient: alert -Gross CN or Focal Neuro deficits: No -Oriented to: person, place and time. -Appearance and judgment: appropriate. Medical Decision Making 61-year-old male presenting to the emergency department with complaint of pain in the posterior medial aspect of his left knee for approximately 1 month. Patient is concerned of blood clot. I indicated the patient we will get an ultrasound he was in agreement. I discussed x-ray of his knee patient declined indicating he did not feel this was necessary. Ultrasound of the lower extremity grossly unremarkable imaging study of the deep venous system of the left leg as described no definite evidence of DVT can be identified; likely popliteal cyst posteriorly in the popliteal fossa as described as interpreted by the radiologist. I discussed this with the patient recommended follow-up with primary care provider and Tylenol ibuprofen for any aches and pains. Gentle stretching. Patient to return for any worsening issues such as severe increasing pains, shortness of breath, or any other problems. Impression and Plan Diagnosis Left knee pain ([id number] M25.562, Discharge, Medical) Popliteal cyst (LOE49-LQ M71.20, Discharge, Medical) Elevated blood pressure reading (GAG90-EZ R03.0, Discharge, Medical) Plan Condition: Stable. Disposition: Discharged: Time 09/10/2021 11:28:00, to home. Prescriptions: Launch prescriptions Radiology: US LE Venous Duplex Left (Order): 09/10/2021 10:13 EDT Stat, pain behind knee, Allow Modification Per Radiologist, Transport Mode: Wheel (more content not included)... Normal [facility] ED Note-Nursingon 09-10-2021 ED Note-Nursing Pt transferred from urgent care for rule out DVT in left leg. Pt has a lump behind his left knee and states it has been present for about a month. Pt states pain is more of an ache not pain. Rates 4/10 at this time. Pt able to walk but does have limp favoring left leg. Pt is able to move knee but has limited ROM due to pain. Pt has palpable lump behind knee and states that is where his pain is located. Normal [facility] ED Patient Summaryon 022 ED Patient Summary [facility] - Emergency Department [address] [place] [id number] PATIENT DISCHARGE INSTRUCTIONS Patient Information Name: GAVIN ZELAYA Age: 61 Years Date of : 1960 Reason For Visit: Knee pain-swelling; LEFT LEG SWELLING Arrival Time: 09/10/2021 10:11:20 Primary Care Physician: Lokesh Schmitz Attending Physician: Ace Tao MD Comment: Visit Diagnosis: Diagnoses This Visit Elevated blood pressure reading (R03.0) Knee pain-swelling ([id number]) Left knee pain (M25.562) Popliteal cyst (M71.20) Prescription Information: If you have been given a prescription for narcotics, seek immediate medical attention if you have any difficulty breathing or any sudden status changes such as confusion and sleepiness. If you or anyone you know is experiencing suicidal thoughts, mental health, alcohol and/or drug addiction problems; contact the [facility] 15/12 Crisis Hotline -Nkqy 4HOPE to 822803. If you received any narcotics, sedation, or any other medication that causes drowsiness for the next 24 hours, unless otherwise directed: ? Do not drive a car. ? Do not operate machinery such as power tools, lawn mowers, drills, sewing machines, or stoves ? Avoid alcoholic beverages and drugs for allergies, nerves, or sleep ? Do not make important personal or business decisions or sign any legal documents With: Address: When: Laith Medina[address], [place] [address] Business (1) Within 2 to 4 days Comments: Orthopedic physician to follow-up with for reevaluation of popliteal cyst in the knee. With: Address: When: Lokesh Schmitz [address] [place], [place] [id number] Business (1) Within 3 to 5 days Comments: Follow-up primary care provider for reevaluation next few days. Continue Tylenol ibuprofen for any aches or pains. No strenuous activity. Return at anytime for any other issues. Medication Information: The exam and treatment you received today in the [facility] Emergency Department were for an urgent problem and are not intended as complete care. It is important for you to follow up with a doctor, nurse practitioner, or physician?s care team assistant for ongoing care. If your symptoms become worse or you do not improve as expected and you are unable to reach your usual health care provider, you should return to the Emergency Department, we are available 24 hours a day. For those patients who have received Radiology results, the interpretation of your X-ray as given to you by our Emergency Department physician is only a preliminary report. The Radiologist will review your films and if there is a change in the diagnosis you will be notified by phone. Please make sure you have provided a working phone number so we can reach you if necessary. In the event that you had a lab culture while you were a patient in the Emergency Department, you will be notified by phone if there is a need to change your antibiotic. Please make sure you have provided a working phone number so we can reach you if necessary. [facility] Emergency Department has provided you with a complete list of medications post discharge. Please inform your railroad worker/provider of your visit and for further instruction on these medications. Any specific questions regarding your chronic medications and dosages should be discussed with your primary care physician(s) and/or pharmacist. Additional medications on your home medication list not specifically addressed. Please contact the ordering physician if you have questions about these medications. amLODIPine (amLODIPine 5 mg oral tablet) TAKE 1 TABLET BY MOUTH EVERY DAY. lisinopril (lisinopril 40 mg oral tablet) TAKE 1 TABLET BY MOUTH EVERY DAY. Visit Information Allergies: Substance Reaction Symptoms Type Comments No known allergies Drug Vital Signs: Vitals and Measurements this Visit (last charted value for your 09/10/2021 visit) Vital Signs This Visit Temperature Oral: 36.7 DegC Peripheral Pulse Rate: 93 bpm Respiratory Rate: 16 br/min Systolic Blood Pressure: 155 mmHg Diastolic Blood Pressure: 99 mmHg SpO2: 100 % Oxygen Therapy: Room air Measurements This Visit Height/Length Dosin.800 cm Height/Length Estimated: 177.800 cm Weight Dosin.060 kg Weight Estimated: 102.060 kg Problems List: Problem Onset Comments Hypertension Patient Education How to Use Cold Therapy Cold therapy, also known as cryotherapy, is a treatment that uses cold temperatures to treat an injury or medical condition. It includes using cold packs or ice packs to reduce pain and swelling. What are the risks? Generally, cold therapy is a safe treatment. However, it is not safe for: ? People who cannot express pain, such as small children and people who have dementia. ? Peo (more content not included)... Normal [facility] ED Patient Summary [facility] ? Urgent Care [address] [place], [place] [id number] PATIENT DISCHARGE INSTRUCTIONS Patient Information Name: GAVIN ZELAYA Age: 61 Years Date of : 1960 Reason For Visit: UC - Knee Pain or Swelling; LEFT KNEE PROBLEM Arrival Time: 09/10/2021 09:32:15 Primary Care Physician: Lokesh Schmitz Attending Physician: Elan Lee Comment: Patient Education Medication Information: The exam and treatment you received today in the [facility] Emergency Department were for an urgent problem and are not intended as complete care. It is important for you to follow up with a doctor, nurse practitioner, or physician?s care team assistant for ongoing care. If your symptoms become worse or you do not improve as expected and you are unable to reach your usual health care provider, you should return to the Emergency Department, we are available 24 hours a day. For those patients who have received Radiology results, the interpretation of your X-ray as given to you by our Emergency Department physician is only a preliminary report. The Radiologist will review your films and if there is a change in the diagnosis you will be notified by phone. Please make sure you have provided a working phone number so we can reach you if necessary. In the event that you had a lab culture while you were a patient in the Emergency Department, you will be notified by phone if there is a need to change your antibiotic. Please make sure you have provided a working phone number so we can reach you if necessary. [facility] Emergency Department has provided you with a complete list of medications post discharge. Please inform your railroad worker/provider of your visit and for further instruction on these medications. Any specific questions regarding your chronic medications and dosages should be discussed with your primary care physician(s) and/or pharmacist. Medications to Continue That Have Not Changed Other Medications amLODIPine (amLODIPine 5 mg oral tablet) TAKE 1 TABLET BY MOUTH EVERY DAY. azithromycin (azithromycin 250 mg oral tablet) Take 2 tabs day 1, one tab daily thereafter.. Refills: 0. lisinopril (lisinopril 40 mg oral tablet) TAKE 1 TABLET BY MOUTH EVERY DAY. Visit Information Visit Diagnosis: Diagnoses This Visit UC - Knee Pain or Swelling ([id number]) If you received any narcotics, sedation, or any other medication that causes drowsiness for the next 24 hours, unless otherwise directed: ? Do not drive a car. ? Do not operate machinery such as power tools, lawn mowers, drills, sewing machines, or stoves ? Avoid alcoholic beverages and drugs for allergies, nerves, or sleep ? Do not make important personal or business decisions or sign any legal documents Reason for Visit: knee pain - pt states he has had pain behind his knee for approximately 1 month, feels like he pulled something but has no idea as to how he did, area is very tight and makes it had to bend the left leg Allergies: Substance Reaction Symptoms Type Comments No known allergies Drug Vital Signs: Vitals and Measurements this Visit (last charted value for your 09/10/2021 visit) Vital Signs This Visit Temperature Oral: 37.2 DegC Respiratory Rate: 18 br/min Systolic Blood Pressure: 159 mmHg Diastolic Blood Pressure: 98 mmHg SpO2: 97 % Measurements This Visit Height: 177.80 cm Weight: 102.06 kg Body Mass Index: 32.28 kg/m2 Problems List: Problem Onset Comments Hypertension Major Tests and Procedures: The following procedures and tests were performed during your ED visit. Laboratory Radiology Cardiology Viruses or Bacteria What?s got you sick? Antibiotics only treat bacterial infections. Viral illnesses cannot be treated with antibiotics. When an antibiotic is not prescribed, ask your healthcare professional for tips on how to relieve symptoms and feel better. Usual Cause Illness Viruses Bacteria Antibiotic Needed Cold/Runny Nose NO Bronchitis/Chest Cold (in otherwise healthy children and adults) NO Whooping Cough Yes Flu NO Strep Throat Yes Sore Throat (except strep) NO Fluid in the middle ear (otitis media with effusion) NO Urinary Tract Infection Yes Antibiotics Aren?t Always the Answer www.cdc.gov/getsmart GET SMART Know When Antibiotics Work U.S. Department of Health and Human Services Centers for Disease Control and Prevention January 2014 [facility] LE Venous Duplex Lefton 0 09-10-2021 LE Venous Duplex Left EXAMINATION: US LE Venous Duplex Left HISTORY: pain behind knee COMPARISON: None TECHNIQUE: Utilizing color-flow duplex scanning and Doppler flow analysis, deep venous system of the left leg was evaluated. Venous duplex examination performed using B-mode, color flow and spectral analysis. FINDINGS: There is normal compressibility throughout. There is gross patency identified. Augmentation is seen. There is no evidence of focal area of increased echogenicity within the deep venous system to suggest thrombosis. Visualized portions of the greater saphenous vein and superficial venous system appear unremarkable. Within the popliteal fossa region there is an approximately 3.8 x 2.5 x 1.7 cm area of decreased echogenicity likely representing popliteal cyst. IMPRESSION: Grossly unremarkable imaging study of the deep venous system of the left leg as described, no definite evidence of deep venous thrombosis can be identified. Likely popliteal cyst posteriorly in the popliteal fossa as described. Final Dictated by: Edwin Parker MD Dictated DT/TM: 09/10/21 11:21 Signed (Electronic Signature): Edwin Parker MD 09/10/21 11:23 a Technologist: [facility] Urgent Care Note- Provideron 09-10-2021 Urgent Care Note- Provider Patient: GAVIN ZELYAA Age: 61 years Sex: MALE : 1960 Associated Diagnoses: None Author: Elan Lee Basic Information Time seen: Date & time 09/10/2021 09:41:00. History source: Patient. Arrival mode: Walking. History limitation: None. Additional information: Chief Complaint from Nursing Triage Note : Chief Complaint 09/10/2021 9:50 EDT Chief Complaint knee pain - pt states he has had pain behind his knee for approximately 1 month, feels like he pulled something but has no idea as to how he did, area is very tight and makes it had to bend the left leg . 4 weeks of left popliteal pain. Hard lump medial aspect. NKI. Feels tight to fully bend, some trouble to bend. Thought it would get better but it hasn't. Had tried rest, nothing helps. Worried potentially about a blood clot. 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 Pt has not notified or seen pcp of concern. ALL: NKDA PMH: HTN Meds: Amlodipine, Lisinopril BP: 159/98 Review of Systems Musculoskeletal symptoms: left popliteal firm, hard mass with pain. Health Status Allergies: Allergic Reactions (Selected) No known allergies. Medications: (Selected) Prescriptions Prescribed azithromycin 250 mg oral tablet: See Instructions, Take 2 tabs day 1, one tab daily thereafter., 6 tab(s), 0 Refill(s) Documented Medications Documented amLODIPine 5 mg oral tablet: TAKE 1 TABLET BY MOUTH EVERY DAY lisinopril 40 mg oral tablet: TAKE 1 TABLET BY MOUTH EVERY DAY. Past Medical/ Family/ Social History Medical history: No active or resolved past medical history items have been selected or recorded.. Surgical history: No active procedure history items have been selected or recorded.. Family history: No family history items have been selected or recorded.. Social history: Social & Psychosocial Habits Alcohol 09/10/2021 Alcohol Use: Current Type: Beer Frequency: 1-2 times per week Substance Abuse 10/27/2018 Substance use: Never Tobacco 09/10/2021 Smoking tobacco use: Never tobacco user Electronic Cigarette/Vaping 09/10/2021 Electronic Cigarette Use: Never . Problem list: Active Problems (1) Hypertension . Physical Examination Vital Signs Vital Signs 09/10/2021 9:46 EDT Temperature Oral 37.2 DegC Respiratory Rate 18 br/min Systolic Blood Pressure 159 mmHg HI Diastolic Blood Pressure 98 mmHg HI SpO2 97 % . General: Alert, no acute distress, Not ill-appearing, Skin: Warm, dry, no rash, normal turgor. Head: Normocephalic, atraumatic. Neck: Supple, trachea midline, full range of motion. Eye: Pupils are equal, round and reactive to light, extraocular movements are intact. Ears, nose, mouth and throat: Mouth: moist, Throat: Normal. Cardiovascular: Regular rate and rhythm, No murmur. Respiratory: Lungs are clear to auscultation, respirations are non-labored, breath sounds are equal. Gastrointestinal: Soft, Nontender. Musculoskeletal: Normal ROM, normal strength, Lower extremity: Left, posterior, knee, aligned, Inspection of the left knee anteriorly and posteriorly no open wounds, erythema or abrasions. There is no visible left knee joint effusion. Patient is able to fully extend to 180 degrees and flex to 90 degrees. Bringing up past 90 causes discomfort in the posterior aspect of the left knee. Patient in the popliteal area reveals a firm palpably hard 5 cm horizontally by 4 cm vertically soft tissue mass of unknown etiology. The area of firm distention also extends vertically from the site approximately 5 cm into the medial aspect of the posterior thigh. There is no erythema or warmth appreciated. There is no varicosities appreciated. This area is not pulsatile. Calf is nontender, negative Homans' sign. Placed tendon intact. Full range of motion the left ankle range of motion left hip. 2/ 2 posterior tibial pulse, no erythema, no ecchymosis. Neurological: Alert and oriented to person, place, time, and situation, No focal neurological deficit observed, CN II-XII intact. Psychiatric: Cooperative, appropriate mood & affect. Medical Decision Making Differential Diagnosis: Deep vein thrombosis, superficial thrombophlebitis, lozano's cyst, tumor, HTN, not cellulitis. Impression and Plan Plan Disposition: Transfer to other location: Time: 09/10/2021 10:05:00, Facility name: [facility], Accepted by: Eamon. [Electronically Signed on: 09/10/2021 10:11 EDT] Elan Lee [Verified on: 09/10/2021 10:11 EDT] Elan Lee Normal [facility] Vital Signs Date Time Vital Sign Value Performing Clinician Facility 02-21-2025 16:06-0400 Body height 176.53 cm [employer] DO Work Phone: [facility] 02-21-2025 16:06-0400 Body mass index (BMI) [Ratio] 29.2 kg/m2 [employer] DO Work Phone: [facility] 02-21-2025 16:06-0400 Body weight 91.28 kg [employer] Work Phone: [facility] 02-21-2025 16:06-0400 Diastolic blood pressure 80 mm[Hg] Lokesh Ball DO Work Phone: [facility] 02-21-2025 16:06-0400 Heart rate 62 /min Lokesh Ball DO Work Phone: [facility] 02-21-2025 16:06-0400 Respiratory rate 12 /min Lokesh Ball DO Work Phone: [facility] 02-21-2025 16:06-0400 Systolic blood pressure 120 mm[Hg] Lokesh Ball DO Work Phone: [facility] 08-09-2024 15:39-0400 Body height 176.53 cm [facility] 08-09-2024 15:39-0400 Body mass index (BMI) [Ratio] 28.7 kg/m2 [facility] 08-09-2024 15:39-0400 Body weight 89.41 kg [facility] 08-09-2024 15:39-0400 Diastolic blood pressure 92 mm[Hg] [facility] 08-09-2024 15:39-0400 Heart rate 71 /min [facility] 08-09-2024 15:39-0400 Respiratory rate 12 /min [facility] 08-09-2024 15:39-0400 Systolic blood pressure 161 mm[Hg] [facility] 02-15-2024 16:27-0400 Body height 176.53 cm [facility] 02-15-2024 16:27-0400 Body mass index (BMI) [Ratio] 30.1 kg/m2 [facility] 02-15-2024 16:27-0400 Body temperature 97.9 [degF] [facility] 02-15-2024 16:27-0400 Body weight 93.89 kg [facility] 02-15-2024 16:27-0400 Diastolic blood pressure 76 mm[Hg] [facility] 02-15-2024 16:27-0400 SaO2% (BldA) [Mass fraction] 98 % [facility] 02-15-2024 16:27-0400 Systolic blood pressure 124 mm[Hg] [facility] 08-10-2023 15:41-0400 Body height 176.53 cm [facility] 08-10-2023 15:41-0400 Body mass index (BMI) [Ratio] 32.1 kg/m2 [facility] 08-10-2023 15:41-0400 Body weight 99.96 kg [facility] 08-10-2023 15:41-0400 Diastolic blood pressure 80 mm[Hg] [facility] 08-10-2023 15:41-0400 Heart rate 84 /min [facility] 08-10-2023 15:41-0400 Respiratory rate 12 /min [facility] 08-10-2023 15:41-0400 Systolic blood pressure 120 mm[Hg] [facility] 02-09-2023 15:30-0400 Body height 176.53 cm Lokesh Ball Other [facility] [employer] Other 02-09-2023 15:30-0400 Body mass index (BMI) [Ratio] 35.66 kg/m2 Lokesh Ball Other [facility] [employer] Other 02-09-2023 15:30-0400 Body weight 111.13 kg Lokesh Ball Other [facility] [employer] Other 02-09-2023 15:30-0400 Diastolic blood pressure 88 mm[Hg] Lokesh Ball Other [facility] [employer] Other 02-09-2023 15:30-0400 Respiratory rate 12 /min Lokesh Ball Other [facility] [employer] Other 02-09-2023 15:30-0400 Systolic blood pressure 139 mm[Hg] Lokesh Ball Other [employer] [facility] [employer] Other 08-05-2022 16:30-0400 Body height 176.53 cm Lokesh Ball Other [facility] [employer] Other 08-05-2022 16:30-0400 Body mass index (BMI) [Ratio] 35.4 kg/m2 Lokesh Schmitz Other [employer] Other 08-05-2022 16:30-0400 Body weight 110.32 kg Lokesh Schmitz Other [employer] Other 08-05-2022 16:30-0400 Diastolic blood pressure 86 mm[Hg] Lokesh Schmitz Other [employer] Other 08-05-2022 16:30-0400 Respiratory rate 12 /min Lokesh Schmitz Other [employer] Other 08-05-2022 16:30-0400 Systolic blood pressure 122 mm[Hg] Lokesh Schmitz Other [employer] Other Encounters Encounter Date Encounter Type Care Provider Facility Start: 02-21-2025 End: 02-21-2025 ambulatory Lokesh Schmitz DO Work Phone: [facility] Work Phone: Start: 02-21-2025 End: 02-21-2025 Patient encounter procedure Lokesh Schmitz DO -[facility] Work Phone: Start: 02-21-2025 End: 02-21-2025 Patient encounter status oLkesh Schmitz [facility] Start: 08-09-2024 End: 08-09-2024 ambulatory [facility] Work Phone: Start: 08-09-2024 End: 08-09-2024 Patient encounter procedure [facility] Work Phone: Start: 02-15-2024 End: 02-15-2024 ambulatory [facility] Work Phone: Start: 02-15-2024 End: 02-15-2024 Encounter for general adult medical examination without abnormal findings [facility] Start: 02-15-2024 End: 02-15-2024 Patient encounter procedure [facility] Work Phone: Start: 02-13-2024 Patient encounter status [facility] Start: 08-10-2023 End: 08-10-2023 ambulatory [facility] Work Phone: Start: 08-10-2023 End: 08-10-2023 Patient encounter procedure [facility] Work Phone: Start: 02-19-2023 End: 02-19-2023 ambulatory Lokesh Schmitz Other [employer] Other Start: 02-19-2023 Telephone encounter Lokesh Schmitz [facility] Start: 02-09-2023 End: 02-09-2023 ambulatory Lokesh Schmitz Other [employer] Other Start: 02-09-2023 Encounter for genera l adult medical examination without abnormal findings Lokesh Schmitz [facility] Start: 02-09-2023 Periodic preventive med est patient 40-64yrs Lkoesh Schmitz [facility] Start: 08-05-2022 End: 08-05-2022 ambulatory Lokesh Schmitz Other [employer] Other Start: 08-05-2022 Office outpatient vi sit 15 minutes Lokesh Schmitz [facility] Start: 01-23-2022 End: 01-24-[address] LOKESH SCHMITZ Facility:[facility] Start: 11-07-[address] LOKESH SCHMITZ Facili ty:[facility] Start: 09-27-2021 End: 09-28-[address] Nelly ART Facility:[facility] Start: 09-25-2021 Encounter for genera l adult medical examination without abnormal findings DR LOKESH SCHMITZ [facility] Start: 09-23-2021 End: 09-24-[address] LOKESH SCHMITZ Facility:[facility] Start: 09-23-2021 End: 09-24-2021 Encounter for general adult medical examination without abnormal findings DR LOKESH SCHMITZ Facility:[facility] Procedures Date Procedure Procedure Detail Performing Clinician Start: 09-23-[address] PELAEZ [place] Comment on above: Performed By: #### [facility] #### [facility] [address] [address] [address] Steven Massey Plan of Treatment Date Care Activity Detail Author Comprehensive metabo lic 1999 panel - Serum or Plasma [facility] Comprehensive metabo lic 1999 panel - Serum or Plasma [facility] Payers Date Payer Category Payer Self-pay 1960 Unknown [id number] 1960 Unknown [id number] 1960 Unknown [id number] 1960 Unknown [id number] 1960 Unknown [id number] Medicare Medicare [id number] Private Health Insurance [employer] [id number] Social History Date Type Detail Facility Sex Assigned At [employer] Other Start: 08-08-2023 Tobacco smoking stat [facility] Never smoked tobacco (finding) [facility] Start: 1960 Sex Assigned At Male [facility] Start: 08-09-2024 Sex Male (finding) [facility] Clinical Notes 09-10-2021 to 02-09-2023 Note Date & Type Note Facility 02-09-2023 Evaluation note Encounter Date Diagnosis Assessment Notes Jan, Primary hypertension (ICD-10 - I10) This patient is instructed to consume a healthy, low-fat, low-salt diet. They are also encouraged to continue exercise to achieve/maintain a normal BMI. Jan, Wellness examination (ICD-10 - Z00.00) Healthy diet and exercise. Reviewed age-appropriate preventive testing recommended. 18 Jan, 2023 Elevated cholesterol (ICD-10 - E78.00) Instructed on diet and exercise with continued statin therapy.Discussed the beneficial effects of lowering cholesterol in reducing the risk for cerebrovascular and cardiovascular disease. 18 Jan, 2023 Chronic venous insufficiency (ICD-10 - I87.2) Avoid salt and elevate lower extremities, support stockings, inspect legs and feet daily for blisters and ulcerations. 18 Jan, 2023 Morbid (severe) obesity due to excess calories (ICD-10 - E66.01) This patient has been instructed on a low-fat, high-fiber diet. They are instructed to reduce calories, portion sizes and snacks. It is recommended that they exercise for 30 minutes, 3-5 times weekly. 18 Jan, 2023 Body mass index [BMI] 35.0-35.9, adult (ICD-10 - Z68.35) 18 Jan, 2023 Screening PSA (prostate specific antigen) (ICD-10 - Z12.5) Yearly TRE and PSA [employer] Other 03-14-2023 Evaluation note* Encounter Date Diagnosis Assessment Notes Treatment Notes Treatment Clinical Notes Jul, Primary hypertension (ICD-10 - I10) This patient is instructed to consume a healthy, low-fat, low-salt diet. They are also encouraged to continue exercise to achieve/maintain a normal BMI. Jul, Elevated cholesterol (ICD-10 - E78.00) Diet and exercise with continued statin therapy. Jul, Chronic venous insufficiency (ICD-10 - I87.2) Avoid salt and elevate lower extremities, support stockings, inspect legs and feet daily for blisters and ulcerations. Jul, Obesity (BMI 30-39.9) (ICD-10 - E66.9) This patient has been instructed on a low-fat, high-fiber diet. They are instructed to reduce calories, portion sizes and snacks. It is recommended that they exercise for 30 minutes, 3-5 times weekly. [employer] Other 06-19-2022 Note [id number]#1.00[place] [address]-24-2022 [id number]#1.00[facility] 10-15-2021 [id number]#1.00[facility]05-24-2022 [id number]#1.00[facility]05-23-2022 [facility] SURGERY Clinical Discharge Summary PERSON INFORMATION Name GAVIN ZELAYA Age 61 Years 1960 Sex MALE Language Romanian PCP Lokesh Schmitz Marital Status Med Service Ambulatory Surgery Acct# Arrival 10/14/2021 11:05:00 Visit Reason SURGERY - LEFT KNEE SCOPE Acuity LOS 004 02:20 Address: [address] [place] [address] DR [facility]EE [facility] [address] Comment: PROVIDER INFORMATION VITALS INFORMATION Vital Sign Triage Latest Temp Oral Temp Temporal Temp Intravascular Temp Axillary Temp Rectal 02 Sat 98 % 98 % Respiratory Rate Peripheral Pulse Rate Apical Heart Rate Blood Pressure / 93 mmHg / 98 mmHg Comment: MEDICAL INFORMATION Allergy Info: No known allergies Prescriptions Given: acetaminophen-hydrocodone (!-Blythe 5 mg-325 mg oral tablet) 1 tab(s) Oral Every 6 hours as needed as needed for pain., Dr. Art's home RX amLODIPine (amLODIPine 5 mg oral tablet) 2 tab(s). TAKE 1 TABLET BY MOUTH EVERY DAY. aspirin (aspirin 81 mg oral delayed release tablet) 1 tab(s) Oral every day. atorvastatin (atorvastatin 20 mg oral tablet) 1 tab(s) Oral every day. lisinopril (lisinopril 40 mg oral tablet) TAKE 1 TABLET BY MOUTH EVERY DAY. Medication List: Medications to Continue That Have Not Changed Other Medications acetaminophen-hydrocodone (!-Blythe 5 mg-325 mg oral tablet) 1 tab(s) Oral Every 6 hours as needed as needed for pain. amLODIPine (amLODIPine 5 mg oral tablet) 2 tab(s). TAKE 1 TABLET BY MOUTH EVERY DAY. aspirin (aspirin 81 mg oral delayed release tablet) 1 tab(s) Oral every day. atorvastatin (atorvastatin 20 mg oral tablet) 1 tab(s) Oral every day. lisinopril (lisinopril 40 mg oral tablet) TAKE 1 TABLET BY MOUTH EVERY DAY. Medications to Continue That Have Not Changed Other Medications acetaminophen-hydrocodone (!-Blythe 5 mg-325 mg oral tablet) 1 tab(s) Oral Every 6 hours as needed as needed for pain. amLODIPine (amLODIPine 5 mg oral tablet) 2 tab(s). TAKE 1 TABLET BY MOUTH EVERY DAY. aspirin (aspirin 81 mg oral delayed release tablet) 1 tab(s) Oral every day. atorvastatin (atorvastatin 20 mg oral tablet) 1 tab(s) Oral every day. lisinopril (lisinopril 40 mg oral tablet) TAKE 1 TABLET BY MOUTH EVERY DAY. Medications to Continue That Have Not Changed Other Medications acetaminophen-hydrocodone (!-Blythe 5 mg-325 mg oral tablet) 1 tab(s) Oral Every 6 hours as needed as needed for pain. amLODIPine (amLODIPine 5 mg oral tablet) 2 tab(s). TAKE 1 TABLET BY MOUTH EVERY DAY. aspirin (aspirin 81 mg oral delayed release tablet) 1 tab(s) Oral every day. atorvastatin (atorvastatin 20 mg oral tablet) 1 tab(s) Oral every day. lisinopril (lisinopril 40 mg oral tablet) TAKE 1 TABLET BY MOUTH EVERY DAY. Comment: Lab and Radiology Results Laboratory or Other Results This Visit (last charted value for your 10/14/2021 visit) No Laboratory or Other Results This Visit DIET & ACTIVITY Patient Activity Level: Patient Diet: Patient Activity Restrictions: DISCHARGE INFORMATION Discharge Disposition: Discharge Location: [facility] REASON INCOMPLETE INFORMATION PATIENT EDUCATION INFORMATION Instructions: Rubens- Post Op Knee Arthroscopy ([facility]HAHUDNICO) Follow up: With: Address: When: Lokesh Schmitz [address] [place] [id number] Business (1) With: Address: When: Laith Art [address] [place] [id number] Business (1) 10/25/2021 7:30 AM DIAGNOSIS Internal derangement of left knee Comment: PHYS CHELA [facility]04-19-2022 NoteEducation Materials Cardiovascular Hypertension, Adult High blood pressure (hypertension) is when the force of blood pumping through the arteries is too strong. The arteries are the blood vessels that carry blood from the heart throughout the body. Hypertension forces the heart to work harder to pump blood and may cause arteries to become narrow or stiff. Untreated or uncontrolled hypertension can cause a heart attack, heart failure, a stroke, kidneydisease, and other problems. A blood pressure reading consists of a higher number over a lower number. Ideally, your blood pressure should be below 120/80. The first ( top ) number is called the systolic pressure. It is a measure of the pressure in your arteries as your heart beats. The second ( bottom ) number is called the diastolic pressure. It is a measure of the pressure in your arteries as the heart relaxes. What are the causes? The exact cause of this condition is not known. There are some conditions that result in or are related to high blood pressure. What increases the risk? Some risk factors for high blood pressure are under your control. The following factors may make you more likely to develop this condition: ? Smoking. ? Having type 2 diabetes mellitus, high cholesterol, or both. ? Not getting enough exercise or physical activity. ? Being overweight. ? Having too much fat, sugar, calories, or salt (sodium) in your diet. ? Drinking too much alcohol. Some risk factors for high blood pressure may be difficult or impossible to change. Some of these factors include: ? Having chronic kidney disease. ? Having a family history of high blood pressure. ? Age. Risk increases with age. ? Race. You may be at higher risk if you are . ? Gender. Men are at higher risk than women before age 45. After age 65, women are at higher risk than men. ? Having obstructive sleep apnea. ? Stress. What are the signs or symptoms? High blood pressure may not cause symptoms. Very high blood pressure (hypertensive crisis) may cause: ? Headache. ? Anxiety. ? Shortness of breath. ? Nosebleed. ? Nausea and vomiting. ? Vision changes. ? Severe chest pain. ? Seizures. How is this diagnosed? This condition is diagnosed by measuring your blood pressure while you are seated, with your arm resting on a flat surface, your legs uncrossed, and your feet flat on the floor. The cuff of the bloodpressure monitor will be placed directly against the skin of your upper arm at the level of your heart. It should be measured at least twice using the same arm. Certain conditions can cause a difference in blood pressure between your right and left arms. Certain factors can cause blood pressure readings to be lower or higher than normal for a short period of time: ? When your blood pressure is higher when you are in a health care provider's office than when you are at home, this is called white coat hypertension. Most people with this condition do not need medicines. ? When your blood pressure is higher at home than when you are in a health care provider's office, this is called masked hypertension. Most people with this condition may need medicines to control blood pressure. If you have a high blood pressure reading during one visit or you have normal blood pressure with other risk factors, you may be asked to: ? Return on a different day to have your blood pressure checked again. ? Monitor your blood pressure at home for 1 week or longer. If you are diagnosed with hypertension, you may have other blood or imaging tests to help your health care provider understand your overall risk for other conditions. How is this treated? This condition is treated by making healthy lifestyle changes, such as eating healthy foods, exercising more, and reducing your alcohol intake. Your health care provider may prescribe medicine if lifestyle changes are not enough to get your blood pressure under control, and if: ? Your systolic blood pressure is above 130. ? Your diastolic blood pressure is above 80. Your personal target blood pressure may vary depending on your medical conditions, your age, and other factors. Follow these instructions at home: Eating and drinking ? Eat a diet that is high in fiber and potassium, and low in sodium, added sugar, and fat. An example eating plan is called the DASH (Dietary Approaches to Stop Hypertension) diet. To eat this way: ? Eat plenty of fresh fruits and vegetables. Try to fill one half of your plate at each meal with fruits and vegetables. ? Eat whole grains, such as whole-wheat pasta, brown rice, or whole-grain bread. Fill about one fourth of your plate with whole grains. ? Eat or drink low-fat dairy products, such as skim milk or low-fat yogurt. ? Avoid fatty cuts of meat, processed or cured meats, and poultry with skin. Fill about one fourth of your plate with lean proteins, such as fish, chicken without skin, beans, e (more content not included)...[id number] NotePatient Education Materials [facility] noteNo InformationNortLank[facility] [employer] Other Evaluation note* Diagnosis Onset Date Resolution Status Chronic venous insufficiency acute Elevated cholesterol acute Essential (primary) hypertension acute [facility] Work Phone: Evaluation note* Diagnosis Onset Date Resolution Status Chronic venous insufficiency acute Elevated cholesterol acute Essential (primary) hypertension acute H/O colonoscopy acute Obesity acute Wellness examination acute [facility] Work Phone: Evaluation note* Diagnosis Onset Date Resolution Status Admit Date Chronic venous insufficiency acute August 09, 2024 3:22pm Elevated cholesterol acute [place] h 2024 3:22pm Essential (primary) hypertension acu te August 09, 2024 3:22pm Obesity acute August 09 3:22pm [facility] Work Phone: Evaluation note* Diagnosis Onset Date Resolution Status Admit Date Chronic venous insufficiency acute February 21, 2025 3:29pm Elevated cholesterol acute Jan 3:29pm Essential (primary) hypertension acute February 21, 2025 3:29pm Overweight acute January 3:29pm Screening PSA (prostate specific antigen) acute January 3:29pm Wellness examination acute Jan 3:29pm [facility] Work Phone: History general Narrative - Reported* Type Description Date Medical History Essential hypertension Medical History Elevated cholesterol Medical History Chronic venous insufficiency Medical History Obesity (BMI 30-39.9) Medical History Lozano cyst, left Surgical History ARTHROSCOPY, KNEE -LEFT 2021 Hospitalization History SEE SURGICAL HX [facility] [employer] Other Reason for referral (narrative)No reason for referral information availableProm[facility] Work Phone: Summary Purpose Family History No Family History Records FoundNo Family History Records Found Advance Directives Advance Directive Response Recorded Date/ Time Advance Directives No June 16, 2023 2:18pm Chief Complaint and Reason for Visit Chief Complaint 6 month follow up Reason for Visit Chronic venous insuf ficiency Elevated cholesterol Essential (primary) hypertension Chief Complaint Wellness Reason for Visit Chronic venous insuf ficiency Elevated cholesterol Essential (primary) hypertension H/O colonoscopy Obesity Wellness examination Chief Complaint Admit Date 6 month f/u August 09, 2024 3:2 2pm Reason for Visit Admit Date Chronic venous insufficiency August 09, 2024 3:22pm Elevated cholesterol August 09, 2024 3: 22pm Essential (primary) hypertension July 232024 3:22pm Obesity August 09, 2024 3:2 2pm Chief Complaint Admit Date Wellness February 21, 2025 3:29pm Reason for Visit Admit Date Chronic venous insufficiency January 252024 3:29pm Elevated cholesterol February 21 3:29pm Essential (primary) hypertension Septemb er 2024 3:29pm Overweight February 21, 2025 3:29pm Screening PSA (prostate specific antigen ) February 21, 2025 3:29pm Wellness examination February 21 3:29pm Additional Source Comments (unrecognized sect ion and content) No Status Records FoundNo Status Records Found INFORMATION SOURCE (unrecogn ized section and content) DATE CREATED AUTHOR 11/10/2021 [facility] DATE CREATED AUTHOR AUTHOR'S ORGANIZ ATION 01/24/2022 [facility] REASON FOR VISIT (unrecogniz ed section and content) [facility] Results Care Teams (unrecognized sec tion and content) Team Status: Active Member Role Status Brian Schmitz DO Primary Care Provider Active Team Status: Inactive Member Role Status Brian Schmitz DO Primary Care Provide r, Attending Provider Active Start: August 10, 2023 End: August 10, 2023 Team Status: Inactive Member Role Status Brian Schmitz DO Primary Care Provide r, Attending Provider Active Start: February 15, 2024 End: February 15, 2024 Team Status: Inactive Member Role Status Brian Schmitz DO Primary Care Provide r, Attending Provider Active Start: August 09, 2024 End: August 09, 2024 Team Status: Inactive Member Role Status Brian Schmitz DO Primary Care Provider Active Start: February 21, 2025 End: February 21, 2025 Lokesh Schmitz DO Attending Provider Active Sta rt: February 21, 2025 End: February 21, 2025 Goals (unrecognized section and content) Goals may be documented in a n alternate section FOR RECORDS PERTAINING TO PATIENTS WHO ARE OR HAVE BEEN ENROLLED IN A CHEMICAL DEPENDENCY/SUBSTANCEABUSE PROGRAM, SOME INFORMATION MAY BE OMITTED. This clinical summary was aggregated from multiple sources. Caution should be exercised in using it in the provision of clinical care. This summary normalizes information from multiple sources, and as a consequence, information in this document may materially change the coding, format and clinical context of patient data. In addition, data may be omitted in some cases. CLINICAL DECISIONS SHOULD BE BASED ON THE PRIMARY CLINICAL RECORDS. [facility] [employer] [facility]. provides no warranty or guarantee of the accuracy or completeness of information in this document.
[2025-03-09 12:08] LABS: Hematocrit 42.7 % (42.0-54.0); Hemoglobin 14.3 g/dL (14.0-18.0); Immature Granulocytes Abs Auto 0.02 10^3/uL (0.00-0.03); Immature Granulocytes Pct Auto 0.4 % (0.0-0.5); Lymphocytes Absolute Auto 1.3 10^3/uL (1.2-3.8); Mean Corpuscular HGB Conc 33.5 g/dL (29.9-35.2); Mean Corpuscular Hemoglobin 31.6 pg (25.9-34.0); Mean Corpuscular Volume 94.3 fL (80.0-94.0); Platelet Count 149 10^3/uL (150-450); Red Blood Count 4.53 10^6/uL (4.70-6.10); White Blood Count 5.0 10^3/uL (4.0-11.0)
[2025-03-09 13:10] LABS: Alanine Aminotransferase 40 U/L (16-63); Albumin Globulin Ratio 1.4; Albumin Level 4.2 g/dL (3.4-5.0); Alkaline Phosphatase 72 U/L (46-116); Anion Gap 10.3; Aspartate Amino Transferase 26 U/L (15-37); Blood Urea Nitrogen 14.0 mg/dL (7.0-18.0); Calcium 9.0 mg/dL (8.5-10.1); Carbon Dioxide 28.7 mmol/L (21.0-32.0); Chloride 104 mmol/L (98-107); Cholesterol 143 mg/dL (<=200); Estimated GFR (African America >60 (>=60 mL/min/1.73m^2); Estimated GFR (Non-African Ame >60 (>=60 mL/min/1.73m^2); Globulin 3.1 g/dL; Glucose 95 mg/dL (74-106); HDL Cholesterol 75 mg/dL (40-60); Potassium 4.0 mmol/L (3.5-5.1); Sodium 139 mmol/L (136-145); Total Protein 7.3 g/dL (6.4-8.2); Triglycerides 21 mg/dL (<=150); VLDL CHOLESTEROL 4.2 mg/dL
== END 2025-03-09 11:38 | disposition home or self-care (01) ==
LOC: LAB 11:37
PROVIDERS: PCP Internal Medicine; Visit Provider Internal Medicine
DX: Z00.00 Encounter for general adult medical examination without abnormal findings (principal); E78.00 Pure hypercholesterolemia, unspecified; I10 Essential (primary) hypertension; Z12.5 Encounter for screening for malignant neoplasm of prostate
CPT/HCPCS: 36415; 80053; 80061; 85025; G0103